=== PATIENT | female | born 1980 | race Caucasian/White ===

== ENCOUNTER 2019-08-06 10:10 | Outpatient (CLI) | payer OTHER, SELFPAY ==
--- NOTE | ~2019-08-06 | US_ITS ---
EXAMINATION: US pelvic complete w TV DATE: 08/06/2019 11:00 INDICATION: Menorrhagia Comparison:No prior studies for comparison. TECHNIQUE: Multiple transabdominal and endovaginal sonographic images of the pelvis performed. FINDINGS: The uterus measures 9.1 x 4.2 x 5 cm. The endometrial complex measures 9 mm. The right ovary measures 4.1 x 2.8 x 2.9 cm and the left ovary measures 2 x 1.3 x 1.8 cm. There is a right ovarian cyst measuring 2.2 x 1.8 x 1.5 cm. There is no free fluid in the pelvis. There are no abnormal masses seen on either side. IMPRESSION: 1. 2.2 cm right ovarian cyst. Reviewed, dictated and finalized at location A.
[2019-08-06 10:45] LABS: Hematocrit 44.3 % (37.0-47.0); Hemoglobin 14.5 g/dL (12.0-15.0); Mean Corpuscular HGB Conc 32.7 g/dl (32-36); Mean Corpuscular Hemoglobin 29.8 pg (26-34); Mean Platelet Volume 10.2 fl (7.4-10.4); Platelet Count Result 217 k/mm3 (150-375); Red Blood Count 4.87 M/mm3 (4.2-5.4); Red Cell Distribution Width 13.9 % (11.5-14.5); White Blood Count 8.6 K/mm3 (4.5-10.0)
[2019-08-06 11:36] LABS: Beta HCG Quantitative < 2.39 mIU/ML
[2019-08-06 11:37] LABS: Free T4 Free Thyroxine 0.71 ng/mL (0.78-2.19)
[2019-08-08 19:59] LABS: Prolactin 11.2 ng/mL (***)
== END 2019-08-06 10:11 | disposition home or self-care (01) ==
PROVIDERS: PCP Family Medicine Adolescent Medicine; Visit Provider Nurse Practitioner
DX: N92.0 Excessive and frequent menstruation with regular cycle (principal); N83.201 Unspecified ovarian cyst, right side
CPT/HCPCS: 36415; 76830; 76856; 84146; 84439; 84443; 84702; 85027

== ENCOUNTER 2019-08-30 08:50 | Outpatient (CLI) | payer OTHER, SELFPAY ==
[2019-08-30 09:08] LABS: Hematocrit 43.1 % (37.0-47.0); Hemoglobin 14.2 g/dL (12.0-15.0)
== END 2019-08-30 08:51 | disposition home or self-care (01) ==
LOC: ANHSURGERY 08:52
PROVIDERS: Anesthesiology; PCP Family Medicine Adolescent Medicine; Visit Provider Obstetrics & Gynecology Gynecology
DX: N92.0 Excessive and frequent menstruation with regular cycle (principal)
CPT/HCPCS: 36415; 85014; 85018

== ENCOUNTER 2019-09-02 00:36 | Outpatient (CLI) | payer OTHER, SELFPAY ==
[2019-09-03 14:20] LABS: SARS-CoV-2 RNA PCR Negative
== END 2019-09-02 00:37 | disposition home or self-care (01) ==
LOC: ANHCOVIDDT 00:36
PROVIDERS: PCP Family Medicine Adolescent Medicine; Visit Provider Obstetrics & Gynecology Gynecology
DX: Z01.812 Encounter for preprocedural laboratory examination (principal); Z11.59 Encounter for screening for other viral diseases
CPT/HCPCS: 87635; C9803; U0003

== ENCOUNTER 2019-09-05 02:22 | Day surgery (SDC) | payer OTHER, SELFPAY ==
[2019-08-23 11:36] VITALS: BMI 34.4
--- NOTE | 2019-09-05 07:40 | P.HP_ITS ---
History of Present Illness History of Present Illness Consent: Risks, benefits, and alternatives have been discussed and questions answered. Patient agrees to proceed with procedure. Chief complaint: Menorrhagia Narrative: Kaya Quintero is a 38 year old female with cycles every 2 weeks lasting 7 days. Patient states heavy with pad changed every 1-2 hours at times. Pelvic u/s normal and labs with low free T4 and normal TSH. Started on synthroid. Recommended to proceed with hysteroscopy with D&C to further evaluate. Risks of infection, bleeding, perforation, and pathology reviewed. Patient states understanding and agrees to proceed. [facility] Past Medical History Medical History (Updated 09/05/19 @ 07:44 by Fadia Alexander MD) Anxiety Asthma (normal spontaneous vaginal delivery) x 2 S/p left hip fracture Surgical History Surgical History (Updated 09/05/19 @ 07:43 by Fadia Alexander MD) S/P tubal ligation Social History Social History Smoking status: Never smoker Spiritual care concerns: No Meds Home Medications and Allergies Home Medications Medication Instructions Recorded Confirmed Type albuterol sulfate 2 puff INHALATION DIRECTED PRN 08/23/19 08/23/19 History escitalopram oxalate 20 mg PO DAILY 08/23/19 08/23/19 History levothyroxine 25 mcg PO DAILY 08/23/19 08/23/19 History Allergies Allergy/AdvReac Type Severity Reaction Status Date / Time No Known Allergies Allergy Verified 08/23/19 11:37 CATS Allergy Mild RESP. Uncoded 08/23/19 11:37 DIFF. EYES SWELL DOGS Allergy Mild EYES WATER Uncoded 08/23/19 11:37 Exam Const: General: healthy appearing and alert Orientation/consciousness: patient oriented x3 Resp: Effort & Inspection: normal respiratory effort Auscultation: clear to auscultation bilaterally Cardio: Rate: regular rate Rhythm: regular rhythm GI: GI Palp: Yes Soft to palpation, No Tenderness to palpation present (GI) and No Palpable mass present : External Female Exam: normal external appearance Speculum Exam - Vagina: normal appearance of the vagina and normal vaginal discharge Speculum Exam - Cervix: normal appearance of the cervix Bimanual exam- vagina & uterus: uterine size normal and consistency normal Bimanual Exam- Adnexa, other: normal adnexae and No adnexal tenderness Neuro: General: patient oriented x3 Assessment and Plan Assessment and plan (1) Irregular bleeding: Code(s): N92.6 - Irregular menstruation, unspecified Status: Acute Assessment and Plan: Plan to proceed with hysteroscopy and D&C
[2019-09-05] MEDS: LACTATED RINGERS 1,000 ML 30 ML IV CONT (09:25)
[2019-09-05] MEDS: ACETAMINOPHEN 500 MG TABLET 1000 MG PO (09:33)
--- NOTE | 2019-09-05 09:36 | P.PNAN_ITS ---
Anes - Initial Pre Proc Eval Procedure: Operation Date: 09/05/19 11:15 Proposed Procedures p Hysteroscopy, Dilation and Curettage - Fadia Alexander MD Date/Time: 09/05/19 09:36 Surgeon: Fadia Alexander MD Pre Op Diagnosis: Menorrhagia Patient Data Age: 38 Gender: F Height: 5 ft 7 in Weight: 102.8 kg Allergies Allergy/AdvReac Type Severity Reaction Status Date / Time No Known Allergies Allergy Verified 09/05/19 09:18 CATS Allergy Mild RESP. Uncoded 09/05/19 09:18 DIFF. EYES SWELL DOGS Allergy Mild EYES WATER Uncoded 09/05/19 09:18 Home Medications Medication Instructions Recorded Confirmed Type albuterol sulfate 2 puff INHALATION DIRECTED PRN 08/23/19 09/05/19 History escitalopram oxalate 20 mg PO DAILY 08/23/19 09/05/19 History levothyroxine 25 mcg PO DAILY 08/23/19 09/05/19 History Patient hx anesthesia problems: none Family hx anesthesia problems: none [facility] Past Medical History Medical History (Updated 09/05/19 @ 07:44 by Fadia Alexander MD) Anxiety Asthma (normal spontaneous vaginal delivery) x 2 S/p left hip fracture Surgical History Surgical History (Updated 09/05/19 @ 07:43 by Fadia Alexander MD) S/P tubal ligation Social History Social History Smoking status: Never smoker Spiritual care concerns: No Anes - Eval Final PreProcedure Day of Procedure 09/05/19 09:36 Patient weight: obese Heart: regular rate and rhythm Lungs: clear to auscultation Airway: Mallampati scale class II Neurological: alert and oriented Last oral intake: >/= 8 hours ASA classification: II Emergent: no Anesthetic plan: proceed Anesthesia type and monitoring: general (use inhalers prior to OR) GIVS and standard monitoring Informed Consent: The patient's anesthetic plan and its attendant risks and benefits were discussed with the patient/family/POA. Questions were solicited and answers provided to the satisfaction of the patient/family/POA.
[2019-09-05 09:43] VITALS: BP 94/56; PULSE 66; RESP 16; TEMP 36.4; O2SAT 97
--- NOTE | 2019-09-05 11:12 | PM.OP ---
Procedure Note - Brief Procedure Note - Brief Date of procedure: 09/05/19 Pre-op diagnosis: Menorrhagia Post-op diagnosis: same Procedure performed: D&C hysteroscopy; removal of polyp Anesthesia: MAC and local Surgeon: Fadia Alexander MD Estimated blood loss (mL): 5 Drains: No Packing: No Pathology: yes Complications: No immediate complications Condition: stable Disposition: PACU Findings: uterus 10 cm; 1 cm polyp on small stalk; grossly normal appearing endometrium
[2019-09-05 11:14] VITALS: BP 93/60; PULSE 64; RESP 16; O2SAT 99
[2019-09-05 11:45] VITALS: BP 90/63; PULSE 58
[2019-09-05 12:15] VITALS: BP 121/65; PULSE 61
--- NOTE | 2019-09-05 15:53 | OP_ITS ---
DATE OF PROCEDURE: 09/05/2019 PREOPERATIVE DIAGNOSIS: Menorrhagia. POSTOPERATIVE DIAGNOSIS: Menorrhagia. PROCEDURE: D and C, hysteroscopy with removal of polyp. ANESTHESIA: MAC and local. FINDINGS: The uterus sounds to 10 cm. There is a 1 cm polyp noted on a very thin stalk. ESTIMATED BLOOD LOSS: 5 cc. PATHOLOGY: Endometrial curettings and polyp. PROCEDURE IN DETAIL: The patient was taken to the operating room, placed under anesthesia, prepped and draped in usual sterile fashion. Gamerco speculum was placed in the vagina. Cervix was grasped on the anterior lip of the tenaculum and injected with 1% lidocaine. The uterus was sounded to 10 cm. The cervix was serially dilated with Hegar. The diagnostic hysteroscope was placed. The endometrium appears grossly normal. Manipulating the camera around a polyp is noted and is detached using the camera due to the thin attachment to the posterior wall. The remainder of the endometrium appears normal. The hysteroscope was removed. The polyp forceps were used to attempt to remove the polyp and this was not successful. The myoma graspers were not successful. The hysteroscope was replaced and the polyp was grasped with a small grasper through the hysteroscope and the hysteroscope and polyp graspers were removed intact. The polyp was noted at the end of the scope and the graspers and removed. The medium sharp curette was then used to sharply curette the remainder of the endometrium. Minimal material was obtained. All instruments were then removed. The patient was taken to Recovery in stable condition. Brando I MT: Destiny
== END 2019-09-05 12:32 | disposition home or self-care (01) ==
PROVIDERS: PCP Family Medicine Adolescent Medicine; Visit Provider Obstetrics & Gynecology Gynecology
PROC: 0U5B8ZZ Destruction of Endometrium, Via Natural or Artificial Opening Endoscopic (ICD-10-PCS; CPT 58563; principal; 2019-09-05 11:15)
DX: N92.0 Excessive and frequent menstruation with regular cycle (principal); N84.0 Polyp of corpus uteri; J45.909 Unspecified asthma, uncomplicated; F41.9 Anxiety disorder, unspecified; E66.9 Obesity, unspecified; Z68.35 Body mass index [BMI] 35.0-35.9, adult
CPT/HCPCS: 58558; 88305; A9270; J2250; J2704; J3010; J7030; J7120

== ENCOUNTER 2019-09-30 09:41 | Outpatient (CLI) | payer OTHER, SELFPAY ==
[2019-09-30 10:11] LABS: Hematocrit 41.3 % (37.0-47.0); Hemoglobin 13.6 g/dL (12.0-15.0); Mean Corpuscular HGB Conc 32.9 g/dl (32-36); Mean Corpuscular Hemoglobin 30.4 pg (26-34); Mean Corpuscular Volume 92.4 fl (80-100); Mean Platelet Volume 10.3 fl (7.4-10.4); Platelet Count Result 193 k/mm3 (150-375); Red Blood Count 4.47 M/mm3 (4.2-5.4); Red Cell Distribution Width 13.8 % (11.5-14.5)
== END 2019-09-30 09:42 | disposition home or self-care (01) ==
LOC: ANHLAB 09:46
PROVIDERS: PCP Family Medicine Adolescent Medicine; Visit Provider Obstetrics & Gynecology Gynecology
DX: N92.0 Excessive and frequent menstruation with regular cycle (principal)
CPT/HCPCS: 36415; 85027

== ENCOUNTER 2019-10-18 09:56 | Outpatient (CLI) | payer OTHER, SELFPAY ==
[2019-10-18 11:21] LABS: Thyroid Stimulating Hormone 0.957 uIU/mL (0.465-4.680)
[2019-10-18 11:49] LABS: Free T4 Free Thyroxine 0.69 ng/mL (0.78-2.19)
== END 2019-10-18 09:57 | disposition home or self-care (01) ==
LOC: ANHLAB 09:58
PROVIDERS: PCP Family Medicine Adolescent Medicine; Visit Provider Obstetrics & Gynecology Gynecology
DX: R94.6 Abnormal results of thyroid function studies (principal)
CPT/HCPCS: 36415; 84439; 84443

== ENCOUNTER 2019-11-11 00:15 | Outpatient (CLI) | payer OTHER, SELFPAY ==
[2019-11-11 18:02] LABS: SARS-CoV-2 RNA PCR Negative
== END 2019-11-11 00:16 | disposition home or self-care (01) ==
LOC: ANHCOVIDDT 00:15
PROVIDERS: PCP Family Medicine Adolescent Medicine; Visit Provider Obstetrics & Gynecology Gynecology
DX: Z01.812 Encounter for preprocedural laboratory examination (principal); Z20.828 Contact with and (suspected) exposure to other viral communicable diseases
CPT/HCPCS: 87635; C9803; U0003

== ENCOUNTER 2019-11-14 00:21 | Day surgery (SDC) | payer OTHER, SELFPAY ==
[2019-10-31 14:32] VITALS: BMI 34.4
--- NOTE | 2019-11-14 07:28 | P.HP_ITS ---
History of Present Illness History of Present Illness Consent: Risks, benefits, and alternatives have been discussed and questions answered. Patient agrees to proceed with procedure. Chief complaint: menorrhaghia Narrative: Kaya Quintero is a 38 year old female with menorrhagia. She had hysteroscopy with removal of large polyp. Cycle remained heavy and patient wants to proceed with endometrial ablation after review of all options. Risks of infection, bleeding, perforation, and failure discussed with patient. Post op expections reviewed. Agrees to proceed. [facility] Past Medical History Medical History (Updated 11/14/19 @ 07:31 by Fadia Alexander MD) Anxiety Asthma (normal spontaneous vaginal delivery) x 2 S/p left hip fracture Surgical History Surgical History (Updated 09/05/19 @ 07:43 by Fadia Alexander MD) S/P tubal ligation Social History Social History Smoking status: Never smoker Spiritual care concerns: No Meds Home Medications and Allergies Home Medications Medication Instructions Recorded Confirmed Type albuterol sulfate 2 puff INHALATION DIRECTED PRN 08/23/19 10/31/19 History escitalopram oxalate 20 mg PO DAILY 08/23/19 10/31/19 History levothyroxine 25 mcg PO DAILY 08/23/19 10/31/19 History epinephrine [EpiPen] 0.3 mg IM ONCE PRN 10/31/19 10/31/19 History montelukast [Singulair] 10 mg PO DAILY 10/31/19 10/31/19 History Allergies Allergy/AdvReac Type Severity Reaction Status Date / Time grape Allergy Anaphylaxis Verified 10/31/19 14:41 pomegranate Allergy Anaphylaxis Verified 10/31/19 14:41 CATS Allergy Mild RESP. Uncoded 10/31/19 14:32 DIFF. EYES SWELL DOGS Allergy Mild EYES WATER Uncoded 10/31/19 14:32 GREEN BEANS Allergy Anaphylaxis Uncoded 10/31/19 14:41 Exam Const: General: healthy appearing and alert Orientation/consciousness: patient oriented x3 Resp: Effort & Inspection: normal respiratory effort Auscultation: clear to auscultation bilaterally Cardio: Rate: regular rate Rhythm: regular rhythm GI: GI Palp: Yes Soft to palpation, No Tenderness to palpation present (GI) and No Palpable mass present : External Female Exam: normal external appearance Speculum Exam - V agina: normal appearance of the vagina and normal vaginal discharge Speculum Exam - Cervix: normal appearance of the cervix Bimanual exam- vagina & uterus: uterine size normal and consistency normal Bimanual Exam- Adnexa, other: normal adnexae and No adnexal tenderness Neuro: General: patient oriented x3 Assessment and Plan Assessment and plan (1) Menorrhagia: Code(s): N92.0 - Excessive and frequent menstruation with regular cycle Status: Acute Assessment and Plan: Plan to proceed with Iman endometrial ablation
--- NOTE | 2019-11-14 07:35 | WPDHPUPDATE1 ---
History and Physical Update Update Date/Time: 11/14/19 07:35 History and Physical has been reviewed, including an updated exam of the patient. There are NO changes in the patient's condition. Risks, benefits, and alternatives have been discussed and questions answered. Patient agrees to proceed with procedure.
[2019-11-14 07:58] VITALS: BMI 35.2
[2019-11-14] MEDS: ACETAMINOPHEN 500 MG TABLET 1000 MG PO (08:10)
[2019-11-14] MEDS: LACTATED RINGERS 1,000 ML 30 ML IV CONT (08:20)
[2019-11-14 08:24] VITALS: BP 116/59; PULSE 81; RESP 18; TEMP 36.2; O2SAT 99
--- NOTE | 2019-11-14 08:26 | WPDANESEPPF ---
Anes - Initial Pre Proc Eval Procedure: Operation Date: 11/14/19 09:30 Proposed Procedures p Hysteroscopy with Iman Ablation - Fadia Alexander MD Date/Time: 11/14/19 08:26 Surgeon: Fadia Alexander MD Pre Op Diagnosis: menorrhaghia Patient Data Age: 38 Gender: F Height: 5 ft 7 in Weight: 102 kg Last Vital Signs Temp 36.2 C L 11/14/19 08:24 Pulse 81 11/14/19 08:24 Resp 18 11/14/19 08:24 BP 116/59 L 11/14/19 08:24 Pulse Ox 99 11/14/19 08:24 Allergies Allergy/AdvReac Type Severity Reaction Status Date / Time grape Allergy Anaphylaxis Verified 11/14/19 07:51 pomegranate Allergy Anaphylaxis Verified 11/14/19 07:51 CATS Allergy Mild RESP. Uncoded 11/14/19 07:51 DIFF. EYES SWELL DOGS Allergy Mild EYES WATER Uncoded 11/14/19 07:51 GREEN BEANS Allergy Anaphylaxis Uncoded 11/14/19 07:51 Home Medications Medication Instructions Recorded Confirmed Type albuterol sulfate 2 puff INHALATION DIRECTED PRN 08/23/19 11/14/19 History escitalopram oxalate 20 mg PO DAILY 08/23/19 11/14/19 History levothyroxine 25 mcg PO DAILY 08/23/19 11/14/19 History epinephrine [EpiPen] 0.3 mg IM ONCE PRN 10/31/19 11/14/19 History montelukast [Singulair] 10 mg PO DAILY 10/31/19 11/14/19 History mometasone-formoterol [Dulera] 2 puff INHALATION BID 11/14/19 11/14/19 History Patient hx anesthesia problems: none Family hx anesthesia problems: none [facility] Past Medical History Medical History Anxiety Asthma (normal spontaneous vaginal delivery) x 2 S/p left hip fracture Surgical History Surgical History S/P tubal ligation Social History Social History Smoking status: Never smoker Spiritual care concerns: No Anes - Eval Final PreProcedure Day of Procedure 11/14/19 08:26 Patient weight: obese Heart: regular rate and rhythm Lungs: clear to auscultation Airway: Mallampati scale class II Neurological: alert and oriented Last oral intake: >/= 8 hours Emergent: no Anesthetic plan: proceed Anesthesia type and monitoring: general GIVS and standard monitoring Informed Consent: The patient's anesthetic plan and its attendant risks and benefits were discussed with the patient/family/POA. Questions were solicited and answers provided to the satisfaction of the patient/family/POA.
[2019-11-14] MEDS: KETOROLAC 30 MG/ML VIAL (*BKC) IV PUSH (09:38)
--- NOTE | 2019-11-14 09:45 | PM.PROC ---
Procedure Note - Detailed Date of procedure: 11/14/19 Pre-op diagnosis: menorrhaghia Post-op diagnosis: same Procedure performed: iman endometrial ablation Description of procedure: The patient was taken to the operating room and placed in the dorsal lithotomy position under MAC anesthesia. She was prepped and draped in usual sterile fashion. The bivalve speculum was placed in the vagina and the cervix is grasped on the anterior lip with a tenaculum. The uterus is sounded to 11cm the cervix sounded to 5cm. The cervix is serially dilated with Hegar 6. The diagnostic hysteroscope was placed with the stated findings. The hysteroscope was removed and the Iman device is opened and placed. The cavity assessment passed on the 1st attempt. The length was set at 6.5cm. Treatment cycle lasted the entire 2 minutes. The device is removed and the hysteroscope replaced. Good ablation effect is noted. All instruments are removed. Patient is awakened from anesthesia and taken to recovery room in stable condition. Anesthesia: MAC and local Surgeon: Fadia Alexander MD Estimated blood loss (mL): 5 Drains: No Packing: No Pathology: none sent Complications: No immediate complications Condition: stable Disposition: PACU Findings: cervix sounds to 5 cm; uterus sounds to 11 cm; grossly normal endometrium
[2019-11-14 09:46] VITALS: BP 110/73; PULSE 70; RESP 14; O2SAT 96
[2019-11-14 10:15] VITALS: BP 109/72; PULSE 60; RESP 16; O2SAT 97
[2019-11-14 10:45] VITALS: BP 117/75; PULSE 59; RESP 16
== END 2019-11-14 11:05 | disposition home or self-care (01) ==
PROVIDERS: PCP Family Medicine Adolescent Medicine; Visit Provider Obstetrics & Gynecology Gynecology
PROC: 0U5B8ZZ Destruction of Endometrium, Via Natural or Artificial Opening Endoscopic (ICD-10-PCS; CPT 58563; principal; 2019-11-14 09:30)
DX: N92.0 Excessive and frequent menstruation with regular cycle (principal); J45.909 Unspecified asthma, uncomplicated; F41.9 Anxiety disorder, unspecified; E66.9 Obesity, unspecified; Z68.35 Body mass index [BMI] 35.0-35.9, adult
CPT/HCPCS: 58563; A9270; J1100; J1885; J2250; J2405; J2704; J3010; J7030; J7120

== ENCOUNTER 2019-12-13 09:12 | Outpatient (CLI) | payer OTHER, SELFPAY ==
[2019-12-13 10:24] LABS: Thyroid Stimulating Hormone 0.357 uIU/mL (0.465-4.680)
[2019-12-13 10:26] LABS: Free T4 Free Thyroxine 0.84 ng/mL (0.78-2.19)
== END 2019-12-13 09:13 | disposition home or self-care (01) ==
PROVIDERS: PCP Family Medicine Adolescent Medicine; Visit Provider Obstetrics & Gynecology Gynecology
DX: E05.90 Thyrotoxicosis, unspecified without thyrotoxic crisis or storm (principal)
CPT/HCPCS: 36415; 84439; 84443

== ENCOUNTER 2020-02-06 11:53 | Outpatient (CLI) | payer OTHER, SELFPAY ==
[2020-02-06 12:56] LABS: Thyroid Stimulating Hormone 0.748 uIU/mL (0.465-4.680)
[2020-02-06 13:29] LABS: Free T4 Free Thyroxine 0.79 ng/mL (0.78-2.19)
== END 2020-02-06 11:54 | disposition home or self-care (01) ==
LOC: ANHLAB 11:54
PROVIDERS: PCP Family Medicine Adolescent Medicine; Visit Provider Obstetrics & Gynecology Gynecology
DX: E03.9 Hypothyroidism, unspecified (principal)
CPT/HCPCS: 36415; 84439; 84443

== ENCOUNTER 2020-02-20 12:16 | Emergency (ER) | payer OTHER, SELFPAY ==
[2020-02-20] VITALS (9 sets, daily range): BP systolic 93–125; BP diastolic 52–73; PULSE 82–88; RESP 16–18; TEMP 36.8; O2SAT 97–100
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
[2020-02-20] MEDS: FAMOTIDINE 20 MG/2 ML VIAL IV PUSH (12:50)
[2020-02-20] MEDS: methylPREDNISolone SOD SUCC 125 MG VIAL IV PUSH (12:50)
[2020-02-20] MEDS: diphenhydrAMINE HCl INJ 50 MG/ML VIAL IV PUSH (12:50)
--- NOTE | 2020-02-20 14:00 | PC.NURSE ---
no further rash observed. pt report no longer itching. no resp distress. vs stable
== END 2020-02-20 14:17 | disposition home or self-care (01) ==
PROVIDERS: Emergency Provider Emergency Medicine; PCP Family Medicine Adolescent Medicine
DX: L50.0 Allergic urticaria (principal); J45.909 Unspecified asthma, uncomplicated; F41.9 Anxiety disorder, unspecified
CPT/HCPCS: 96374; 96375; 99284; J1200; J2930

== ENCOUNTER 2020-08-30 09:27 | Outpatient (CLI) | payer OTHER, SELFPAY ==
[2020-08-30 10:51] LABS: Free T4 Free Thyroxine 0.78 ng/mL (0.78-2.19); Vitamin D 25 Hydroxy 40.6 ng/mL
[2020-08-30 10:55] LABS: Thyroid Stimulating Hormone 0.771 uIU/mL (0.465-4.680)
== END 2020-08-30 09:28 | disposition home or self-care (01) ==
LOC: ANHLAB 09:28
PROVIDERS: PCP Family Medicine Adolescent Medicine; Visit Provider Nurse Practitioner
DX: E55.9 Vitamin D deficiency, unspecified (principal); E03.9 Hypothyroidism, unspecified
CPT/HCPCS: 36415; 82306; 84439; 84443

== ENCOUNTER 2020-12-04 08:48 | Outpatient (CLI) | payer OTHER, SELFPAY ==
[2020-12-04 10:07] LABS: Thyroid Stimulating Hormone 0.756 uIU/mL (0.465-4.680)
[2020-12-04 10:13] LABS: Vitamin D 25 Hydroxy 39.6 ng/mL
== END 2020-12-04 08:49 | disposition home or self-care (01) ==
PROVIDERS: PCP Family Medicine Adolescent Medicine; Visit Provider Obstetrics & Gynecology Gynecology
DX: E03.9 Hypothyroidism, unspecified (principal); E55.9 Vitamin D deficiency, unspecified
CPT/HCPCS: 36415; 82306; 84439; 84443

== ENCOUNTER 2021-06-05 10:56 | Emergency (ER) | payer OTHER, SELFPAY ==
[2021-06-05 11:05] VITALS: BP 127/90; PULSE 74; RESP 16; TEMP 36.4; O2SAT 100
--- NOTE | 2021-06-05 11:26 | ED.SKABFB ---
HPI - Skin/Abscess/Foreign Bdy General Chief complaint: Skin/Abscess/Foreign Body Stated complaint: RASH Time Seen by Provider: 06/05/21 11:26 Source: patient Mode of arrival: ambulatory Limitations: no limitations History of Present Illness HPI narrative: 40-year-old female presents with itchy rash to bilateral arms for 2 weeks. States that rash started after working outside in [employer]. Has used any [id number] steroid cream to treat itching. Has not taken any Benadryl or other antihistamine to treat itching. Patient has used permethrin 5% cream twice due to concern for scabies. She has had no known contact with scabies and no other family members in her house have similar rash. She states that she had a scabies several years ago and rash looks similar. All systems reviewed and negative except as noted above Related Data Home Medications Medication Instructions Recorded Confirmed albuterol sulfate 2 puff INHALATION DIRECTED PRN 08/23/19 03/14/21 escitalopram oxalate 20 mg PO DAILY 08/23/19 03/14/21 epinephrine [EpiPen] 0.3 mg IM ONCE PRN 10/31/19 03/14/21 acyclovir 400 mg tablet 400 mg PO TID PRN 03/13/21 03/14/21 cholecalciferol (vitamin D3) 10 20 mcg PO DAILY cap 03/14/21 03/14/21 mcg (400 unit) capsule levothyroxine 75 mcg capsule See Rx Instructions PO DAILY 03/14/21 03/14/21 Allergies Allergy/AdvReac Type Severity Reaction Status Date / Time grape Allergy Anaphylaxis Verified 03/14/21 09:00 pomegranate Allergy Anaphylaxis Verified 03/14/21 09:00 CATS Allergy Mild RESP. Uncoded 03/14/21 09:00 DIFF. EYES SWELL DOGS Allergy Mild EYES WATER Uncoded 03/14/21 09:00 GREEN BEANS Allergy Anaphylaxis Uncoded 03/14/21 09:00 Review of Systems Review of Systems: CONSTITUTIONAL: Denies fever, chills, or sweats. EYES: Denies visual changes, redness, or discharge. ENT: Denies rhinorrhea, congestion, sore throat, or otalgia. CARDIOVASCULAR: Denies chest pain, palpitations, or edema. RESPIRATORY: Denies cough or dyspnea. GASTROINTESTINAL: Denies abdominal pain, nausea, vomiting, or diarrhea. GENITOURINARY: Denies dysuria or hematuria. SKIN: Reports rash and itching. MUSCULOSKELETAL: Denies back pain, joint pain, or myalgia. NEUROLOGIC: Denies headache, numbness, or weakness. PSYCHIATRIC: Denies anxiety or depression. All other systems reviewed are negative, except as documented in HPI. [facility] Past Medical History Medical History Anxiety Asthma Generalized anxiety disorder Hypothyroid (normal spontaneous vaginal delivery) x 2 S/p left hip fracture Surgical History Surgical History H/O lumpectomy Rt breast lumpectomy History of endometrial ablation S/P tubal ligation Family History Family History Grandparent Breast cancer Acute myocardial infarction Cerebrovascular accident Diabetes mellitus Grandparent Family history of malignant neoplasm of breast Breast cancer Father Asthma Mother Heart disease Stents placed Diabetes mellitus Hypertension Other Depression Social History Social History Smoking status: Never smoker Alcohol intake: current Alcohol use details: once weekly Substance use: never Substance use type: does not use Gender identity (if verbalized by the patient): Female Sexual Orientation (if Verbalized by the Patient): Straight or Heterosexual Spiritual care concerns: No Agree to blood products: Yes Comments At time of signature, agree with nursing past medical, surgical, social and family history. There is no relevant family history pertinent to the presenting complaint. Exam Narrative: GENERAL: This is a well-nourished, well-developed patient, in no apparent distress. HEAD: normocephalic, atrauma
== END 2021-06-05 11:40 | disposition home or self-care (01) ==
PROVIDERS: Emergency Provider Nurse Practitioner Family; PCP Family Medicine Adolescent Medicine
DX: L25.5 Unspecified contact dermatitis due to plants, except food (principal); J45.909 Unspecified asthma, uncomplicated; E03.9 Hypothyroidism, unspecified; F41.1 Generalized anxiety disorder
CPT/HCPCS: 99213; G0463

== ENCOUNTER 2021-06-11 12:05 | Outpatient (CLI) | payer OTHER, SELFPAY ==
[2021-06-11 12:59] LABS: Vitamin D 25 Hydroxy 25.9 ng/mL
== END 2021-06-11 12:06 | disposition home or self-care (01) ==
LOC: ANHLAB 12:07
PROVIDERS: PCP Family Medicine Adolescent Medicine; Visit Provider Obstetrics & Gynecology Gynecology
DX: E55.9 Vitamin D deficiency, unspecified (principal)
CPT/HCPCS: 36415; 82306

== ENCOUNTER 2021-06-14 17:12 | Emergency (ER) | payer OTHER, SELFPAY ==
--- NOTE | ~2021-06-14 | XR_ITS ---
EXAMINATION: XR ankle RT min 3V DATE: 06/14/2021 17:29 INDICATION: Right ankle inversion injury with lateral malleolar swelling and pain TECHNIQUE: Anteroposterior, oblique, mortise, and lateral views of the right ankle were obtained. COMPARISON: None. FINDINGS: Alignment is normal. No fracture. Joint spaces are normal. Moderate-sized Achilles and plantar calcan eal spurs. Soft tissue swelling about the lateral malleolus. No evident ankle joint effusion. IMPRESSION: 1. No acute osseous abnormality. Reviewed, dictated and finalized at location A.
[2021-06-14 17:17] VITALS: BP 125/80; PULSE 93; RESP 16; TEMP 36.9; O2SAT 96
--- NOTE | 2021-06-14 19:05 | ED.LOWEXIN ---
HPI - Extremity Injury (Lower) General Chief Complaint: Extremity Injury, Lower Stated Complaint: Fall Injury/Right Ankle Time Seen by Provider: 06/14/21 19:06 Source: patient, RN notes reviewed and old records reviewed Mode of arrival: ambulatory Limitations: no limitations History of Present Illness HPI Narrative: 40 hemanth old female who present to express care with complaints of injury to her right ankle after walking out her front door dodging her dog this afternoon and stepped down rolling her foot with pain and swelling now present to her right lateral ankle, Patient is able to apply some weight to her right foot but with increase pain, circulation and sensation is intact to right foot. Has taken some Ibuprofen for her discomfort and has applied ice. MD complaint: ankle injury (right ankle) and fall Onset (ago): hour(s) (this afternoon) Injury: Right: ankle (lateral) Type of Injury: other (rolled) Place: home Exacerbating factors: weight bearing Context: fall Treatments prior to arrival: cold therapy and NSAIDS Related Data Home Medications Medication Instructions Recorded Confirmed albuterol sulfate 2 puff INHALATION DIRECTED PRN 08/23/19 06/14/21 escitalopram oxalate 20 mg PO DAILY 08/23/19 06/14/21 epinephrine [EpiPen] 0.3 mg IM ONCE PRN 10/31/19 06/14/21 levothyroxine 75 mcg capsule See Rx Instructions PO DAILY 03/14/21 06/14/21 ergocalciferol (vitamin D2) 1,250 mcg PO WEEKLY 06/14/21 06/14/21 triamcinolone acetonide 1 applic TOPICAL TID 06/14/21 06/14/21 Allergies Allergy/AdvReac Type Severity Reaction Status Date / Time grape Allergy Anaphylaxis Verified 06/14/21 18:09 pomegranate Allergy Anaphylaxis Verified 06/14/21 18:09 CATS Allergy Mild RESP. Uncoded 06/14/21 18:09 DIFF. EYES SWELL DOGS Allergy Mild EYES WATER Uncoded 06/14/21 18:09 GREEN BEANS Allergy Anaphylaxis Uncoded 06/14/21 18:09 Review of Systems Review of Systems: CONSTITUTIONAL: Denies fever, chills, or sweats. EYES: Denies visual changes, redness, or discharge. ENT: Denies rhinorrhea, congestion, sore throat, or otalgia. CARDIOVASCULAR: Denies chest pain, palpitations, or edema. RESPIRATORY: Denies cough or dyspnea. GASTROINTESTINAL: Denies abdominal pain, nausea, vomiting, or diarrhea. GENITOURINARY: Denies dysuria or hematuria. SKIN: Denies rash or itching. MUSCULOSKELETAL: Denies back pain,right lateral ankle joint pain, or myalgia. NEUROLOGIC: Denies headache, numbness, or weakness. PSYCHIATRIC: Positive for history of anxiety or depression. All systems reviewed & are unremarkable except as noted in HPI and below PMFSH Past Medical History Medical History Anxiety Asthma Generalized anxiety disorder Hypothyroid (normal spontaneous vaginal delivery) x 2 S/p left hip fracture Surgical History Surgical History H/O lumpectomy Rt breast lumpectomy History of endometrial ablation S/P tubal ligation Family History Family History Grandparent Breast cancer Acute myocardial infarction Cerebrovascular accident Diabetes mellitus Grandparent Family history of malignant neoplasm of breast Breast cancer Father Asthma Mother Heart disease Stents placed Diabetes mellitus Hypertension Other Depression Social History Social History Smoking status: Never smoker Alcohol intake: current Alcohol use details: once weekly Substance use: never Substance use type: does not use Gender identity (if verbalized by the patient): Female Sexual Orientation (if Verbalized by the Patient): Straight or Heterosexual Spiritual care concerns: No Agree to blood products: Yes Comments At time of signature, agree with nursing past medical, surgical, social and family history. The
== END 2021-06-14 19:15 | disposition home or self-care (01) ==
PROVIDERS: Emergency Provider Registered Nurse; PCP Family Medicine Adolescent Medicine
DX: S93.401A Sprain of unspecified ligament of right ankle, initial encounter (principal); S96.911A Strain of unspecified muscle and tendon at ankle and foot level, right foot, initial encounter; E03.9 Hypothyroidism, unspecified; X50.1XXA Overexertion from prolonged static or awkward postures, initial encounter; Y92.008 Other place in unspecified non-institutional (private) residence as the place of occurrence of the external cause
CPT/HCPCS: 73610; 99213; G0463

== ENCOUNTER 2021-08-01 11:36 | Outpatient (CLI) | payer OTHER, SELFPAY ==
--- NOTE | ~2021-08-01 | XR_ITS ---
XR ankle RT min 3V DATE: 08/01/2021 11:47 INDICATION: Right ankle and foot pain TECHNIQUE: 4 views COMPARISON: 06/14/2021 right ankle FINDINGS: Moderate plantar and posterior calcaneal enthesopathy. No fracture or dislocation of the ankle or disruption of the ankle mortise or periosteal reaction or bone destruction. IMPRESSION: Plantar and posterior calcaneal enthesopathy Reviewed, dictated and finalized at location A.
== END 2021-08-01 11:37 | disposition home or self-care (01) ==
LOC: ANHIMG 11:38
PROVIDERS: PCP Family Medicine Adolescent Medicine; Visit Provider Physician Assistant
DX: M25.571 Pain in right ankle and joints of right foot (principal); M77.31 Calcaneal spur, right foot
CPT/HCPCS: 73610

== ENCOUNTER 2021-08-20 10:04 | Outpatient (CLI) | payer OTHER, SELFPAY ==
[2021-08-20 10:27] LABS: Basophils Absolute Auto 0.1 K/mm3 (0.0-0.1); Basophils Percent Auto 0.6 % (0.2-1.2); Eosinophils Absolute Auto 0.1 K/mm3 (0-0.3); Eosinophils Percent Auto 1.4 % (0-4.4); Hematocrit 43.4 % (37.0-47.0); Hemoglobin 14.1 g/dL (12.0-15.0); Immature Granulocyte Absolute 0.01 K/mm3 (0.00-0.031); Immature Granulocyte Percent A 0.1 % (0-0.5); Lymphocytes Absolute Auto 1.77 K/mm3 (0.9-3.2); Lymphocytes Percent Auto 22.1 % (18.3-44.2); Mean Corpuscular HGB Conc 32.5 g/dl (32-36); Mean Corpuscular Hemoglobin 30.4 pg (26-34); Mean Corpuscular Volume 93.5 fl (80-100); Mean Platelet Volume 9.9 fl (7.4-10.4); Monocytes Absolute Auto 0.6 K/mm3 (0.1-0.6); Monocytes Percent Auto 7.1 % (2.6-8.5); Neutrophils Absolute Auto 5.5 K/mm3 (1.3-6.7); Neutrophils Percent Auto 68.7 % (45.5-73.1); Platelet Count Result 220 k/mm3 (150-375); Red Blood Count 4.64 M/mm3 (4.2-5.4); Red Cell Distribution Width 13.9 % (11.5-14.5)
== END 2021-08-20 10:05 | disposition home or self-care (01) ==
PROVIDERS: PCP Family Medicine Adolescent Medicine; Visit Provider Obstetrics & Gynecology
DX: R87.629 Unspecified abnormal cytological findings in specimens from vagina (principal); Z01.818 Encounter for other preprocedural examination
CPT/HCPCS: 36415; 85025; 86850; 86900; 86901

== ENCOUNTER 2021-08-23 01:27 | Day surgery (SDC) | payer OTHER, SELFPAY ==
[2021-08-16 13:46] VITALS: BMI 37.6
--- NOTE | 2021-08-16 13:52 | PC.NURSE ---
Report to the Outpatient Waiting Room, entrance under the green pavilion located off [facility], at time _0930_ on date _[id number]_. OR Time: _1130_. - You and your visitor will be asked a series of questions to screen for COVID 19 for your protection. - Only one visitor is allowed at this time. - The patient visitor is requested to leave or wait in car when not with patient. - A mask is required within the hospital. Patients may have clear liquids (water, carbonated beverages, clear teas, apple juice) until 3 hours prior to surgery with a maximum of 20 ounces. - No food from midnight until time of surgery Take the following medications with a SIP of water the morning of surgery: __Escitalopram, Levothyroxine and Dulera Medications to discontinue per physician ____None Date to take last dose Please no make-up, nail portuguese, hairspray, perfume, deodorant, or body powder the day of surgery. No jewelry (including any body piercings) or valuables the day of surgery, leave them at home. Please take a shower or bath the night before, or the morning of, surgery with an antibacterial soap. Wear comfortable, loose fitting clothing. - Jewelry must be removed prior to entering the operating room. Rings and piercings that are not removed may be cut off. - The hospital will not accept responsibility for valuables. - Please leave all valuables, including medications, at home the day of surgery. If you are going home after surgery, a licensed national dedicated truck driver must drive you home. - NO public transportation without another adult. - We recommend that an adult stay with you for 24 hours following discharge. - We also recommend that you do not drive, make important decision, drink alcoholic beverages, or take any drugs that were not prescribed by your health care provider for at least 24 hours after your discharge time. Follow any additional instructions given to you from your surgeon. If you or anyone in your household have experienced Covid symptoms in the past week, please notify your surgeon or the nurse liaison at the phone number below for possible testing. Telephone instructions given to __Patient___and asked if any additional questions and then verbalized understanding. Patient advised to call surgeon office or pre surgery nurse liaison [phone] if any additional questions.
--- NOTE | 2021-08-21 07:26 | PM.IMHP ---
H&P: HPI History of Present Illness Date/Time: 08/21/21 07:26 Chief Complaint: Pelvic pain/stress urinary incontinence Narrative: This is a 40-year-old female admitted for robotic hysterectomy bilateral salpingectomy with sling procedure. She has stress incontinence as well as a prolapsed uterus. She has pain, dyspareunia, and chronic discomfort. Risks and benefits of this procedure reviewed including exclusive of , aspiration pneumonia, bleeding, transfusion, perforation injury to bowel, bladder, ureters, or other internal organs with need for open laparotomy. She received the [employer] handout entitled hysterectomy as well as the de Stephen handout. She was given a handout concerning the TVT procedure and the risks of mesh etc. reviewed in great details. She had all questions answered. She asked to proceed PMFSH Past Medical History Medical History Anxiety Asthma Generalized anxiety disorder Hypothyroid Irregular bleeding Menorrhagia (normal spontaneous vaginal delivery) x 2 S/p left hip fracture Surgical History Surgical History H/O lumpectomy Rt breast lumpectomy History of endometrial ablation S/P tubal ligation Family History Family History Grandparent Breast cancer Acute myocardial infarction Cerebrovascular accident Diabetes mellitus Grandparent Family history of malignant neoplasm of breast Breast cancer Father Asthma Mother Heart disease Stents placed Diabetes mellitus Hypertension Other Depression Social History Social History Smoking status: Never smoker Second hand tobacco smoke exposure: No Alcohol intake: current Drinks per week: 1 Alcohol use details: once weekly Substance use: never Substance use type: does not use Gender identity (if verbalized by the patient): Female Sexual Orientation (if Verbalized by the Patient): Straight or Heterosexual Spiritual care concerns: No Agree to blood products: Yes Meds Home Medications and Allergies Home Medications Medication Instructions Recorded Confirmed Type epinephrine 0.3 mg/0.3 mL 0.3 mg IM ONCE PRN Allergic 10/31/19 08/16/21 History injection, auto-injector (EpiPen) Reaction levothyroxine 75 mcg capsule 75 mcg PO QAM 03/14/21 08/16/21 History montelukast 10 mg tablet 10 mg PO DAILY #90 tabs 04/15/21 08/16/21 Rx (Singulair) mometasone-formoterol HFA 200 2 puff inhalation BID #8.8 grams 04/18/21 08/16/21 Rx mcg-5 mcg/actuation aerosol inhaler (Dulera) ergocalciferol (vitamin D2) 1,250 1,250 mcg PO WEEKLY 06/14/21 08/16/21 History mcg (50,000 unit) capsule albuterol sulfate 90 mcg/actuation 2 puff inhalation DIRECTED PRN 06/24/21 08/16/21 Rx aerosol inhaler Shortness Of Breath #8.5 grams escitalopram oxalate 20 mg tablet 20 mg PO QAM 08/16/21 08/16/21 History Allergies Allergy/AdvReac Type Severity Reaction Status Date / Time cat dander Allergy Severe Difficulty Verified 08/16/21 14:07 Breathing dog dander Allergy Mild Other Verified 08/16/21 14:07 grape Allergy Anaphylaxis Verified 08/16/21 13:43 pomegranate Allergy Anaphylaxis Verified 08/16/21 13:43 GREEN BEANS Allergy Anaphylaxis Uncoded 08/16/21 13:43 Exam : External Female Exam: normal external appearance Speculum Exam - Vagina: normal appearance of the vagina Speculum Exam - Cervix: normal appearance of the cervix (Second-degree prolapse is present) Bimanual exam- vagina & uterus: enlarged Bimanual Exam- Adnexa, other: normal adnexae Assessment and Plan Assessment and plan (1) Uterine prolapse: Code(s): N81.4 - Uterovaginal prolapse, unspecified Status: Acute (2) Pelvic pain: Code(s): R10.2 - Pelvic and perineal pain Status: Acut
[2021-08-23] VITALS (18 sets, daily range): BP systolic 102–130; BP diastolic 54–84; PULSE 64–93; RESP 10–16; TEMP 36.6–36.8; O2SAT 93–100
--- NOTE | 2021-08-23 06:30 | WPDHPUPDATE1 ---
History and Physical Update Update Date/Time: 08/23/21 06:30 History and Physical has been reviewed, including an updated exam of the patient. There are NO changes in the patient's condition. Risks, benefits, and alternatives have been discussed and questions answered. Patient agrees to proceed with procedure.
[2021-08-23] MEDS: ACETAMINOPHEN 500 MG TABLET 1000 MG PO (07:41)
[2021-08-23] MEDS: LACTATED RINGERS 1,000 ML 30 ML IV CONT ×2 (08:08→11:00)
[2021-08-23] MEDS: KETOROLAC 15 MG/ML VIAL (*BKC) IV PUSH (08:12)
--- NOTE | 2021-08-23 08:42 | WPDANESEPPF ---
Anes - Initial Pre Proc Eval Procedure: Operation Date: 08/23/21 09:30 Proposed Procedures p Robotic Assisted Total Vaginal Hysterectomy, Bilateral Salpingectomy - Joni Miner MD s Tension Free Vaginal Taping - Joni Miner MD Date/Time: 08/23/21 08:42 Surgeon: Joni Miner MD Pre Op Diagnosis: abn pap, uterine prolapse, pain, ADELAIDE Patient Data Age: 40 Gender: F Height: 1.7 m Weight: 109.9 kg Last Vital Signs Temp 98.3 F 08/23/21 08:15 Pulse 66 08/23/21 08:15 Resp 16 08/23/21 08:15 BP 119/70 08/23/21 08:15 Pulse Ox 97 08/23/21 08:15 O2 Del Method Room Air 08/23/21 08:15 Allergies Allergy/AdvReac Type Severity Reaction Status Date / Time cat dander Allergy Severe Difficulty Verified 08/23/21 07:36 Breathing dog dander Allergy Mild Other Verified 08/23/21 07:36 grape Allergy Anaphylaxis Verified 08/23/21 07:36 pomegranate Allergy Anaphylaxis Verified 08/23/21 07:36 Home Medications Medication Instructions Recorded Confirmed Type epinephrine 0.3 mg/0.3 mL 0.3 mg IM ONCE PRN Allergic 10/31/19 08/16/21 History injection, auto-injector (EpiPen) Reaction levothyroxine 75 mcg capsule 75 mcg PO QAM 03/14/21 08/23/21 History montelukast 10 mg tablet 10 mg PO DAILY #90 tabs 04/15/21 08/23/21 Rx (Singulair) mometasone-formoterol HFA 200 2 puff inhalation BID #8.8 grams 04/18/21 08/23/21 Rx mcg-5 mcg/actuation aerosol inhaler (Dulera) ergocalciferol (vitamin D2) 1,250 1,250 mcg PO WEEKLY 06/14/21 08/23/21 History mcg (50,000 unit) capsule albuterol sulfate 90 mcg/actuation 2 puff inhalation DIRECTED PRN 06/24/21 08/16/21 Rx aerosol inhaler Shortness Of Breath #8.5 grams escitalopram oxalate 20 mg tablet 20 mg PO QAM 08/16/21 08/23/21 History hydrocodone 5 mg-acetaminophen 325 1 tablet PO Q4H PRN pain #30 tabs 08/23/21 Rx mg tablet Patient hx anesthesia problems: none Family hx anesthesia problems: none Results Review: All pre-operative results and documents have been reviewed as part of the pre-operative evaluation. [facility] Past Medical History Medical History Anxiety Asthma Generalized anxiety disorder Hypothyroid Irregular bleeding Menorrhagia (normal spontaneous vaginal delivery) x 2 S/p left hip fracture Surgical History Surgical History H/O lumpectomy Rt breast lumpectomy History of endometrial ablation S/P tubal ligation Family History Family History Grandparent Breast cancer Acute myocardial infarction Cerebrovascular accident Diabetes mellitus Grandparent Family history of malignant neoplasm of breast Breast cancer Father Asthma Mother Heart disease Stents placed Diabetes mellitus Hypertension Other Depression Social History Social History Smoking status: Never smoker Second hand tobacco smoke exposure: No Alcohol intake: current Drinks per week: 1 Alcohol use details: once weekly Substance use: never Substance use type: does not use Living arrangements: with family Gender identity (if verbalized by the patient): Female Sexual Orientation (if Verbalized by the Patient): Straight or Heterosexual Spiritual care concerns: No Agree to blood products: Yes Anes - Eval Final PreProcedure Day of Procedure 08/23/21 08:42 Patient weight: obese Heart: regular rate and rhythm Lungs: clear to auscultation Airway: Mallampati scale class II Neurological: alert and oriented Last oral intake: >/= 8 hours ASA classification: III Emergent: no Anesthetic plan: proceed Anesthesia type and monitoring: general ETT and standard monitoring Results Review: All pre-operative results and documents have been reviewed as part of the pr
[2021-08-23] MEDS: ceFAZolin 2 GM/D5W 50 ML 2 GM/50 ML BAG IVPB (09:11)
--- NOTE | 2021-08-23 10:53 | W.PM.PROC2 ---
Procedure Note - Detailed Date of Procedure 08/23/21 Pre-op Diagnosis abn pap, uterine prolapse, pain, ADELAIDE Post-op Diagnosis Same Procedure Performed Robotic total vaginal hysterectomy/bilateral salpingectomy/tension-free vaginal tape/cysto Surgeon Joni Miner MD Anesthesia General Indications This 40-year-old female with uterine prolapse pain and abnormal cells under cervix as well as stress urinary incontinence Findings Prolapsed uterus/normal-appearing ovaries and tubes/tubes status post tubal ligation Description of Procedure The patient was prepped draped in the normal sterile fashion placed in the dorsal lithotomy position. Under excellent general trach anesthesia weighted speculum placed in posterior fornix vagina. Anterior lip of the cervix grasped with a single-tooth tenaculum. Uterus sounded to 10cm. Serial dilatation with fragmented dilators performed followed by passage of 10. LICNOLN and the 3. Cold cup. Next the 16 Norwegian catheter was placed and bladder drained of clear urine. The single-tooth was removed. The weighted speculum was removed. Gloves were changed A supraumbilical incision made the Veress needle passed in the abdomen filled with CO2 gas [id number]. The 8mm trocar advanced in the abdomen. Downside visualized no injury seen. Patient placed in Trendelenburg and left and right lateral quadrant incisions made. The 8mm trocars were advanced under direct visualization assuring no injury. A right upper quadrant incision made the 8mm trocar advanced under direct visualization assuring no injury. The robot was docked. Attention turned to the console. The left round ligament was grasped, burned, cut. Anteriorly a bladder flap was formed by sharply dissecting the peritoneum pushing the bladder caudally away from the cervix and uterus to the opposite round ligament which was clamped, burned, cut. This was fairly vascular and required some cauterization. Next the left fallopian tube was removed in its entirety by sharply dissecting it away from the ovarian complex and leaving it attached to the uterine origin. In like fashion the right fallopian tube was sharply dissected away from the ovary and left attached to the uterus. The left cardinal and broad ligaments were serially skeletonized. They were clamped, burned, cut and brought down the lateral edge of the uterus until the large blood vessels could be seen. These were individually clamped, burned, cut. In like fashion the cardinal broad ligaments on the right were serially skeletonized. These were clamped, burned, cut and brought down the lateral edge of the cervix until the uterine vessels could be seen on the right. The uterine vessels were then serially skeletonized clamped, burned, cut. Hemostasis was assured and blanching of the uterus was noted a colpotomy incision was then made and the cervix uterus and tubes removed through the vagina. The vagina was then closed with continuous running 0V lock from lateral edge to lateral edge back to the midline. Irrigation undertaken until clear and hemostasis was assured. The gas was removed from the abdomen after the robot was undocked. The trocars removed and the incisions closed with 4-0 Monocryl and glue. Attention was then turned to the sling procedure. An 18 Norwegian catheter was replaced. An suburethral incision was made at the midportion and the lateral bladder space is emptied entered by blunt dissection. The catheter guide was then placed and retracted laterally. The right retropubic bladder space entered at a 45 degree angle behind the pubic bone upto35? to the fashion skin. In like fashion opposite to retro pubic bladder space was entered after retracting the bladder to the op opposite direction. This was entered at a 45 degree angle upto30? through the fascia and skin. The 70degree cystoscope was then inserted after removing the catheter. No injury seen this was then brought up to the tightness of an open pee
[2021-08-23] MEDS: fentaNYL CITRATE INJ (*CRX) 100 MCG/2 ML VIAL 25 MCG IV PUSH ×6 (11:26→13:35)
[2021-08-23] MEDS: diphenhydrAMINE HCl INJ 50 MG/ML VIAL 12.5 MG IV PUSH ×2 (12:16→12:53)
[2021-08-23] MEDS: DEXTROSE 5%/LACTATED RINGERS 1,000 ML 125 ML IV CONT (15:15)
[2021-08-23] MEDS: DOCUSATE SODIUM 100 MG CAPSULE PO (16:12)
[2021-08-23] MEDS: KETOROLAC 30 MG/ML VIAL (*BKC) IV PUSH ×2 (16:13→22:45)
[2021-08-23] MEDS: HYDROcodone/acetaminophen (*CRX) 5-325 MG TABLET 1 TAB PO (19:09)
--- NOTE | 2021-08-23 20:50 | ADMGEN ---
1430-This patient, Kaya Quintero, was admitted to OB 2nd Floor Room 289-00. Patient/family oriented to hospital policies and general routines including ID bracelet, bed and alarms, visiting hours, pain management, procedures, bathroom and other care routines, personal items, smoking policy, room service/diet, and visiting hours. Information on how to activate the Rapid Response Team has been discussed. Patient/Family are encouraged to report perceived risks to care and to ask questions if they do not understand what they are told or what they should do.
[2021-08-24] MEDS: HYDROcodone/acetaminophen (*CRX) 5-325 MG TABLET 1 TAB PO ×3 (01:48→08:22)
[2021-08-24] MEDS: IBUPROFEN 600 MG TABLET PO (04:39)
[2021-08-24 04:40] VITALS: BP 121/61; PULSE 77; RESP 16; TEMP 36.7
[2021-08-24 05:21] LABS: Basophils Percent Auto 0.1 % (0.2-1.2); Eosinophils Percent Auto 0.1 % (0-4.4); Hematocrit 42.9 % (37.0-47.0); Hemoglobin 13.6 g/dL (12.0-15.0); Immature Granulocyte Absolute 0.05 K/mm3 (0.00-0.031); Immature Granulocyte Percent A 0.3 % (0-0.5); Lymphocytes Absolute Auto 1.87 K/mm3 (0.9-3.2); Lymphocytes Percent Auto 12.3 % (18.3-44.2); Mean Corpuscular HGB Conc 31.7 g/dl (32-36); Mean Corpuscular Volume 94.7 fl (80-100); Mean Platelet Volume 10.4 fl (7.4-10.4); Monocytes Absolute Auto 0.9 K/mm3 (0.1-0.6); Monocytes Percent Auto 6.1 % (2.6-8.5); Neutrophils Absolute Auto 12.3 K/mm3 (1.3-6.7); Neutrophils Percent Auto 81.1 % (45.5-73.1); Platelet Count Result 237 k/mm3 (150-375); Red Blood Count 4.53 M/mm3 (4.2-5.4); Red Cell Distribution Width 13.7 % (11.5-14.5); White Blood Count 15.2 K/mm3 (4.5-10.0)
--- NOTE | 2021-08-24 06:39 | PM.DS ---
DS: Admitting Diagnosis Discharge Date 08/24/2021 Admitting Diagnosis Uterine prolapse/stress urinary incontinence/pelvic pain DS: Discharge Diagnosis Discharge Diagnosis (1) Primary stress urinary incontinence: Code(s): N39.3 - Stress incontinence (female) (male) Status: Acute (2) Pelvic pain: Code(s): R10.2 - Pelvic and perineal pain Status: Acute (3) Uterine prolapse: Code(s): N81.4 - Uterovaginal prolapse, unspecified Status: Acute (4) Asthma: Code(s): J45.909 - Unspecified asthma, uncomplicated Status: Acute DS: Summary Hospital Course Reason for hospitalization: Patient was readmitted for robotic hysterectomy bilateral salpingectomy and sling procedure. Hospital Course: Patient underwent robotic total vaginal hysterectomy and bilateral salpingectomy. She had a sling as well. Her hospital course was unremarkable. She remained afebrile. She was up, voiding without difficulty, ambulating, and generally without complaints. Time Spent with Patient Time attestation: Total time spent providing and/or coordinating discharge services: DS: Data Data Completed and Pending Pending studies at discharge: Pending at discharge 08/23/21 10:15 Surgical [PTH] Routine Labs on day of discharge: Labs from last 24 hours 08/24/21 04:38 WBC 15.2 H RBC 4.53 Hgb 13.6 Hct 42.9 MCV 94.7 MCH 30.0 MCHC 31.7 L RDW 13.7 Plt Count 237 MPV 10.4 Immature Gran % (Auto) 0.3 Neut % (Auto) 81.1 H Lymph % (Auto) 12.3 L [place] % (Auto) 6.1 Eos % (Auto) 0.1 Baso % (Auto) 0.1 L Lymph # (Auto) 1.87 [place] # (Auto) 0.9 H Eos # (Auto) 0.0 Baso # (Auto) 0.0 Abs Immat Gran (auto) 0.05 H Absolute Neuts (auto) 12.3 H Absolute Nucleated RBC 0.0 Nucleated RBC % 0.0 Discharge Plan Discharge Patient Disposition: Home, Self-Care Stand Alone Forms: General Discharge Instructions Follow-up/Referrals: Joni Yates MD [Physician] - Discharge Medications: New hydrocodone-acetaminophen 5-325 mg tablet 1 tablet PO Q4H PRN (Reason: pain) Qty: 30 0RF Continued ergocalciferol (vitamin D2) 1,250 mcg (50,000 unit) capsule 1,250 mcg PO WEEKLY Rx Instructions: Tuesdays levothyroxine 75 mcg capsule 75 mcg PO QAM epinephrine [EpiPen] 0.3 mg/0.3 mL Auto-Injector 0.3 mg IM ONCE PRN (Reason: Allergic Reaction) escitalopram oxalate 20 mg tablet 20 mg PO QAM montelukast [Singulair] 10 mg tablet 10 mg PO DAILY Qty: 90 2RF Dulera 200-5 mcg/actuation HFA aerosol inhaler 2 puff inhalation BID Qty: 8.8 5RF albuterol sulfate 90 mcg/actuation HFA aerosol inhaler 2 puff INHALATION DIRECTED PRN (Reason: Shortness Of Breath) Qty: 8.5 2RF
--- NOTE | 2021-08-24 06:42 | PM.GYNPNOP ---
SENIOR MILITARY ANALYST - A/P Assessment and plan (1) Primary stress urinary incontinence: Code(s): N39.3 - Stress incontinence (female) (male) Status: Acute (2) Pelvic pain: Code(s): R10.2 - Pelvic and perineal pain Status: Acute (3) Uterine prolapse: Code(s): N81.4 - Uterovaginal prolapse, unspecified Status: Acute (4) Asthma: Code(s): J45.909 - Unspecified asthma, uncomplicated Status: Acute (5) Generalized anxiety disorder: Code(s): F41.1 - Generalized anxiety disorder Status: Acute (6) Hypothyroid: Code(s): E03.9 - Hypothyroidism, unspecified Status: Acute Postoperative Procedures: Procedures Operation Date: 08/23/21 09:30 Actual Procedure Side Surgeon p Robotic Assisted Total Vaginal Hysterectomy, Bilateral Salpingectomy Bilateral Joni Miner MD s Tension Free Vaginal Taping Not Applicable Joni Miner MD Postoperative day: 1 Postoperative status: doing well Postoperative plan: routine post-op care, advance diet and discharge Time Spent With Patient Time: Total time spent is greater than 50% in coordination of care (as documented) at patient's floor/unit and/or counseling patient: Time with patient: less than 15 minutes SENIOR MILITARY ANALYST- PN:Subj Post-Op Subjective Date/time seen: 08/24/21 06:42 Subjective: patient reports feeling better, patient has no complaints, patient desires discharge, pain is well controlled and patient is tolerating oral intake Review of Systems Review of Systems: CONSTITUTIONAL: Denies fever, chills, or sweats. EYES: Denies visual changes, redness, or discharge. ENT: Denies rhinorrhea, congestion, sore throat, or otalgia. CARDIOVASCULAR: Denies chest pain, palpitations, or edema. RESPIRATORY: Denies cough or dyspnea. GASTROINTESTINAL: Denies abdominal pain, nausea, vomiting, or diarrhea. GENITOURINARY: Denies dysuria or hematuria. SKIN: Denies rash or itching. MUSCULOSKELETAL: Denies back pain,right lateral ankle joint pain, or myalgia. NEUROLOGIC: Denies headache, numbness, or weakness. PSYCHIATRIC: Positive for history of anxiety or depression. All systems reviewed & are unremarkable except as noted in HPI and below SENIOR MILITARY ANALYST - PN: Obj Data Vital Signs Vital Signs: Vital Signs - 24 hr 08/23/21 08:15 08/23/21 11:05 08/23/21 11:20 Temperature 98.3 F 98 F Pulse Rate 66 70 78 Respiratory Rate 16 16 16 Blood Pressure 119/70 114/72 118/80 Pulse Oximetry 97 100 100 Oxygen Delivery Room Air Simple Face Mask Simple Face Mask Oxygen Flow Rate 8 8 08/23/21 11:35 08/23/21 11:50 08/23/21 12:05 Temperature Pulse Rate 69 66 70 Respiratory Rate 12 10 L 15 Blood Pressure 106/70 127/76 130/84 Pulse Oximetry 100 98 96 Oxygen Delivery Simple Face Mask Simple Face Mask Room Air Oxygen Flow Rate 8 8 08/23/21 12:20 08/23/21 12:35 08/23/21 12:50 Temperature Pulse Rate 67 71 64 Respiratory Rate 12 12 12 Blood Pressure 126/83 127/81 127/80 Pulse Oximetry 95 94 95 Oxygen Delivery Room Air Room Air Room Air Oxygen Flow Rate 08/23/21 13:05 08/23/21 13:20 08/23/21 13:35 Temperature Pulse Rate 73 68 70 Respiratory Rate 10 L 10 L 12 Blood Pressure 109/84 110/83 108/83 Pulse Oximetry 95 95 93 Oxygen Delivery Room Air Room Air Room Air Oxygen Flow Rate 08/23/21 13:50 08/23/21 14:05 08/23/21 15:00 Temperature 98.3 F Pulse Rate 65 73 67 Respiratory Rate 10 L 12 16 Blood Pressure 105/76 102/74 116/67 Pulse Oximetry 94 96 96 Oxygen Delivery Room Air Room Air Oxygen Flow Rate 08/23/21 18:50 08/23/21 18:50 08/23/21 14:45 Temperature 97.8 F Pulse Rate 91 91 Respiratory Rate 16 16 Blood Pressure 121/71 Pulse Oximetry 96 Oxygen Delivery Room Air Room Air Oxygen Flow Rate 08/23/21 23:00 08/23/21 23:00 08/24/21 04:40 Temperature 98 F 98.1 F Pulse Rate 93 77 Respiratory Rate 16 16 Blood Pressure 116/54 L 121/61 Pulse Oximetry Oxygen Delivery Room Air Oxyg
[2021-08-24 07:40] VITALS: BP 124/83; PULSE 62; RESP 14; TEMP 36.9; O2SAT 99
--- NOTE | 2021-08-24 07:52 | OBPPTRN ---
Patient transferred to post room # 285 via wheelchair. Support person present. Oriented to unit, room, information board, rooming in, admission packet and security measures. Patient verbalizes understanding.
--- NOTE | 2021-08-24 07:58 | P.PNAN_ITS ---
Anes - Prog Note Post-Op Date/Time: 08/24/21 07:58 Cardiovascular status: normal Respiratory status: normal Airway patency: baseline Mental status: baseline Post-Op hydration status: normal Vital Signs: Last Vital Signs Temp 36.7 C 08/24/21 04:40 Pulse 77 08/24/21 04:40 Resp 16 08/24/21 04:40 BP 121/61 08/24/21 04:40 Pulse Ox 96 08/23/21 15:00 O2 Del Method Room Air 08/24/21 04:40 O2 Flow Rate 8 08/23/21 11:50 Pain Score (VAS): 03/28 I/O: Intake & Output 08/23/21 08/23/21 08/24/21 15:59 23:59 07:59 Intake Total 1850 2810 Output Total 65 2050 Balance 1785 760 Laboratory Tests 08/24/21 04:38 08/24/21 04:38 WBC 15.2 H RBC 4.53 Hgb 13.6 Hct 42.9 MCV 94.7 MCH 30.0 MCHC 31.7 L RDW 13.7 Plt Count 237 MPV 10.4 Immature Gran % (Auto) 0.3 Neut % (Auto) 81.1 H Lymph % (Auto) 12.3 L [place] % (Auto) 6.1 Eos % (Auto) 0.1 Baso % (Auto) 0.1 L Lymph # (Auto) 1.87 [place] # (Auto) 0.9 H Eos # (Auto) 0.0 Baso # (Auto) 0.0 Abs Immat Gran (auto) 0.05 H Absolute Neuts (auto) 12.3 H Absolute Nucleated RBC 0.0 Nucleated RBC % 0.0 Post-procedural complaints: none Patient Feedback: Patient satisfied with anesthetic care.
[2021-08-24] MEDS: ENOXAPARIN 40 MG/0.4 ML SYRINGE SUB-Q (08:22)
[2021-08-24] MEDS: DOCUSATE SODIUM 100 MG CAPSULE PO (08:23)
== END 2021-08-24 09:06 | disposition home or self-care (01) ==
LOC: ANHSURGERY 07:03 → ANHOB2 14:58
PROVIDERS: PCP Family Medicine Adolescent Medicine; Visit Provider Obstetrics & Gynecology
PROC: (CPT 57288; principal; 2021-08-23 09:30)
PROC: 0TSD0ZZ Reposition Urethra, Open Approach (ICD-10-PCS; CPT 57288; 2021-08-23 09:30)
DX: N81.4 Uterovaginal prolapse, unspecified (principal); R10.2 Pelvic and perineal pain; N39.3 Stress incontinence (female) (male); J45.909 Unspecified asthma, uncomplicated; E03.9 Hypothyroidism, unspecified; Z79.51 Long term (current) use of inhaled steroids; F41.1 Generalized anxiety disorder; E66.9 Obesity, unspecified; Z68.37 Body mass index [BMI] 37.0-37.9, adult
CPT/HCPCS: 57288; 58552; S2900; 36415; 85025; 88307; 99199; A9270; C1771; J0690; J1100; J1170; J1200; J1650; J1885; J2250; J2405; J2704; J2710; J3010; J7030; J7120; J7121

== ENCOUNTER 2021-12-23 12:18 | Emergency (ER) | payer OTHER, SELFPAY ==
[2021-12-23 13:02] VITALS: BP 118/72; PULSE 96; RESP 14; TEMP 36.5; O2SAT 98
--- NOTE | 2021-12-23 13:02 | ED.URI ---
HPI - URI/Sore Throat General Chief Complaint: Upper Respiratory Infection Stated Complaint: head cold dizzy achey Time Seen by Provider: 12/23/21 13:08 Source: patient and RN notes reviewed Mode of arrival: ambulatory Limitations: no limitations History of Present Illness HPI Narrative: 41-year-old female presents with concern for fever, sinus congestion that started this morning. Reports her daughter has similar symptoms. Reports she had close exposure to COVID last week. Denies shortness of breath, sore throat MD elicited complaint: sore throat Related Data Home Medications Medication Instructions Recorded Confirmed epinephrine 0.3 mg/0.3 mL 0.3 mg IM ONCE PRN Allergic 10/31/19 11/27/21 injection, auto-injector (EpiPen) Reaction levothyroxine 75 mcg capsule 75 mcg PO QAM 03/14/21 11/27/21 ergocalciferol (vitamin D2) 1,250 1,250 mcg PO WEEKLY 06/14/21 11/27/21 mcg (50,000 unit) capsule escitalopram oxalate 20 mg tablet 20 mg PO QAM 08/16/21 11/27/21 Allergies Allergy/AdvReac Type Severity Reaction Status Date / Time cat dander Allergy Severe Difficulty Verified 08/23/21 07:36 Breathing dog dander Allergy Mild Other Verified 08/23/21 07:36 grape Allergy Anaphylaxis Verified 08/23/21 07:36 pomegranate Allergy Anaphylaxis Verified 08/23/21 07:36 Review of Systems Review of Systems: CONSTITUTIONAL: Reports malaise, fever. EYES: Denies visual changes, redness, or discharge. ENT: Reports rhinorrhea, congestion. Denies sinus pain, otalgia and sore throat. CARDIOVASCULAR: Denies chest pain, palpitations, or edema. RESPIRATORY: Denies cough. Denies dyspnea. GASTROINTESTINAL: Denies abdominal pain, nausea, vomiting, diarrhea SKIN: Denies rash or itching. MUSCULOSKELETAL: Reports myalgia. NEUROLOGIC: Denies headache. All systems reviewed & are unremarkable except as noted in HPI and below PMFSH Past Medical History Medical History Anxiety Asthma Generalized anxiety disorder Hypothyroid Irregular bleeding Menorrhagia (normal spontaneous vaginal delivery) x 2 S/p left hip fracture Surgical History Surgical History H/O lumpectomy Rt breast lumpectomy History of endometrial ablation S/P tubal ligation Family History Family History Grandparent Breast cancer Acute myocardial infarction Cerebrovascular accident Diabetes mellitus Grandparent Family history of malignant neoplasm of breast Breast cancer Father Asthma Mother Heart disease Stents placed Diabetes mellitus Hypertension Other Depression Social History Social History Smoking status: Never smoker Second hand tobacco smoke exposure: No Alcohol intake: current Drinks per week: 1 Alcohol use details: once weekly Substance use: never Substance use type: does not use Gender identity (if verbalized by the patient): Female Sexual Orientation (if Verbalized by the Patient): Straight or Heterosexual Spiritual care concerns: No Agree to blood products: Yes Comments At time of signature, agree with nursing past medical, surgical, social and family history. There is no relevant family history pertinent to the presenting complaint Exam Narrative: GENERAL: Well-appearing, well-nourished, and in no acute distress. HEAD: Normocephalic EYES: PERRLA, conjunctivae clear ENT: Nares clear, clear discharge. Mucous membranes moist. TM pearly amato with dull light reflex bilaterally; no tragal tenderness. Oropharynx not erythematous without lesions. Tonsils not enlarged and without exudate, no drooling, no hoarseness, no trismus, uvula midline. NECK: Supple. No lymphadenopathy CHEST: Clear to auscultation, breath sounds equal. No wheezing, rhonchi, rales, or stridor. No respiratory
== END 2021-12-23 13:59 | disposition home or self-care (01) ==
PROVIDERS: Emergency Provider Nurse Practitioner; PCP Family Medicine Adolescent Medicine
DX: Z20.818 Contact with and (suspected) exposure to other bacterial communicable diseases (principal); J45.909 Unspecified asthma, uncomplicated; E03.9 Hypothyroidism, unspecified; F41.1 Generalized anxiety disorder
CPT/HCPCS: 87081; 87880; 99213; G0463

== ENCOUNTER 2022-01-23 12:47 | Emergency (ER) | payer OTHER, SELFPAY ==
--- NOTE | ~2022-01-23 | XR_ITS ---
XR ankle RT min 3V DATE: 01/23/2022 13:29 INDICATION: Drug by horse. Pain. TECHNIQUE: 4 views COMPARISON: None FINDINGS: Mild lateral soft tissue swelling. No fracture or dislocation of the ankle or disruption of the ankle mortise. Plantar and posterior calcaneal enthesopathy. IMPRESSION: Mild lateral soft tissue swelling Reviewed, dictated and finalized at location B. [facility] NURSE
--- NOTE | ~2022-01-23 | XR_ITS ---
XR knee RT min 4V DATE: 01/23/2022 13:28 INDICATION: Drug by horse. Pain and swelling TECHNIQUE: [place], AP and bilateral oblique views, crosstable lateral view. COMPARISON: None FINDINGS: No radiopaque soft tissue foreign body. No fracture or dislocation is detected. No radiopaq ue intra-articular loose body or chondrocalcinosis. Joint spaces are preserved. No periosteal reactio n or bone destruction. IMPRESSION: No significant abnormality Reviewed, dictated and finalized at location B. TENANCE AND REPAIR WORKER IMPRESSION: No significant abnormality
[2022-01-23 12:54] VITALS: BP 122/74; PULSE 100; RESP 20; TEMP 36.7; O2SAT 96
--- NOTE | 2022-01-23 12:58 | ED.LOWEXIN ---
HPI - Extremity Injury (Lower) General Chief Complaint: Extremity Injury, Lower Stated Complaint: Fall Injury/Right Knee / Ankle Time Seen by Provider: 01/23/22 12:58 Source: patient and RN notes reviewed History of Present Illness HPI Narrative: patient is a 41-year-old female who presents to urgent care with complaints of right knee and ankle pain with swelling. Patient states that she fell off a horse yesterday. Patient has been taking ibuprofen for the pain. Patient states that she is having increasing pain with weight-bearing hand. Denies of loss of consciousness or hitting her head. Denies any other injuries. No other acute complaints. No acute distress noted. Patient aware of the plan of care. Some parts of this dictation were generated by voice recognition software and may contain typographical and/or grammatical inaccuracies. Related Data Home Medications Medication Instructions Recorded Confirmed epinephrine 0.3 mg/0.3 mL 0.3 mg IM ONCE PRN Allergic 10/31/19 11/27/21 injection, auto-injector (EpiPen) Reaction levothyroxine 75 mcg capsule 75 mcg PO QAM 03/14/21 11/27/21 ergocalciferol (vitamin D2) 1,250 1,250 mcg PO WEEKLY 06/14/21 11/27/21 mcg (50,000 unit) capsule escitalopram oxalate 20 mg tablet 20 mg PO QAM 08/16/21 11/27/21 Allergies Allergy/AdvReac Type Severity Reaction Status Date / Time cat dander Allergy Severe Difficulty Verified 01/23/22 12:55 Breathing dog dander Allergy Mild Other Verified 01/23/22 12:55 grape Allergy Anaphylaxis Verified 01/23/22 12:55 pomegranate Allergy Anaphylaxis Verified 01/23/22 12:55 Review of Systems Review of Systems: CONSTITUTIONAL: Denies fever, chills, or sweats. EYES: Denies visual changes, redness, or discharge. ENT: Denies rhinorrhea, congestion, sore throat, or otalgia. CARDIOVASCULAR: Denies chest pain, palpitations, or edema. RESPIRATORY: Denies cough or dyspnea. GASTROINTESTINAL: Denies abdominal pain, nausea, vomiting, or diarrhea. GENITOURINARY: Denies dysuria or hematuria. SKIN: Denies rash or itching. MUSCULOSKELETAL: Reports of right ankle and right knee pain swelling NEUROLOGIC: Denies headache, numbness, or weakness. All other systems reviewed are negative, except as documented in HPI. [facility] Past Medical History Medical History Anxiety Asthma Generalized anxiety disorder Hypothyroid Irregular bleeding Menorrhagia (normal spontaneous vaginal delivery) x 2 S/p left hip fracture Surgical History Surgical History H/O lumpectomy Rt breast lumpectomy History of endometrial ablation S/P tubal ligation Family History Family History Grandparent Breast cancer Acute myocardial infarction Cerebrovascular accident Diabetes mellitus Grandparent Family history of malignant neoplasm of breast Breast cancer Father Asthma Mother Heart disease Stents placed Diabetes mellitus Hypertension Other Depression Social History Social History Smoking status: Never smoker Second hand tobacco smoke exposure: No Alcohol intake: current Drinks per week: 1 Alcohol use details: once weekly Substance use: never Substance use type: does not use Gender identity (if verbalized by the patient): Female Sexual Orientation (if Verbalized by the Patient): Straight or Heterosexual Spiritual care concerns: No Agree to blood products: Yes Comments At the time of my signature, I reviewed and agree with the nursing past medical, surgical, social, and family history. There is no relevant family history pertinent to the patient complaint. Exam Narrative: GENERAL: This is a well-nourished, well-developed patient, in no apparent distress. HEAD: normocephalic, atraumatic.
[2022-01-23 13:03] VITALS: BP 122/74; PULSE 100; RESP 20; TEMP 36.7; O2SAT 96
== END 2022-01-23 13:54 | disposition home or self-care (01) ==
PROVIDERS: Emergency Provider Nurse Practitioner Family; PCP Family Medicine Adolescent Medicine
DX: S93.401A Sprain of unspecified ligament of right ankle, initial encounter (principal); S96.911A Strain of unspecified muscle and tendon at ankle and foot level, right foot, initial encounter; S83.91XA Sprain of unspecified site of right knee, initial encounter; V80.010A Animal-rider injured by fall from or being thrown from horse in noncollision accident, initial encounter; J45.909 Unspecified asthma, uncomplicated; E03.9 Hypothyroidism, unspecified; F41.1 Generalized anxiety disorder
CPT/HCPCS: 73564; 73610; 99214; G0463

== ENCOUNTER 2022-06-05 10:48 | Outpatient (CLI) | payer OTHER, SELFPAY ==
[2022-06-05 11:23] LABS: Hematocrit 43.9 % (37.0-47.0); Hemoglobin 13.9 g/dL (12.0-15.0); Mean Corpuscular HGB Conc 31.7 g/dl (32-36); Mean Corpuscular Hemoglobin 30.3 pg (26-34); Mean Corpuscular Volume 95.9 fl (80-100); Mean Platelet Volume 9.8 fl (7.4-10.4); Platelet Count Result 221 k/mm3 (150-375); Red Blood Count 4.58 M/mm3 (4.2-5.4); Red Cell Distribution Width 13.7 % (11.5-14.5); White Blood Count 8.2 K/mm3 (4.5-10.0)
[2022-06-05 11:24] LABS: Alanine Aminotransferase 23 U/L (6-35); Albumin Level 4.4 g/dL (3.5-5.1); Alkaline Phosphatase 67 U/L (38-126); Anion Gap 7 mmol/L (8-16); Aspartate Amino Transferase 19 U/L (14-36); Bilirubin,Total 0.9 mg/dL (0.2-1.3); Blood Urea Nitrogen 10 mg/dL (7-17); Calcium 8.7 mg/dL (8.4-10.2); Carbon Dioxide 27 mmol/L (22-30); Chloride 104 mmol/L (98-107); Cholesterol 174 mg/dL (0-200); Estimated Glomerular Filt Rate > 60; Glucose 107 mg/dL (65-110); HDL Direct 43 mg/dL; Potassium 4.1 mmol/L (3.4-5.0); Sodium 138 mmol/L (137-145); Triglycerides 318 mg/dL (<150)
[2022-06-05 11:35] LABS: LDL Cholesterol Direct 93 mg/dL
== END 2022-06-05 10:49 | disposition home or self-care (01) ==
LOC: ANHLAB 10:50
PROVIDERS: PCP Family Medicine Adolescent Medicine; Visit Provider Nurse Practitioner Family
DX: F41.1 Generalized anxiety disorder (principal); E03.9 Hypothyroidism, unspecified; Z13.220 Encounter for screening for lipoid disorders
CPT/HCPCS: 36415; 80053; 80061; 84443; 85027

== ENCOUNTER 2022-12-25 09:27 | Outpatient (CLI) | payer OTHER, SELFPAY ==
--- NOTE | ~2022-12-25 | XR_ITS ---
EXAMINATION: XR heel LT min 2V INDICATION: Left foot pain TECHNIQUE: Two views of the left heel are obtained COMPARISON: None available FINDINGS: No fracture, dislocation, or subluxation. Posterior and plantar calcaneal enthesophytes are noted. The soft tissues are unremarkable. IMPRESSION: 1. No acute osseous abnormality. Reviewed, dictated and finalized at location L. [employer] SHIPPING CLERK
== END 2022-12-25 09:28 | disposition home or self-care (01) ==
PROVIDERS: PCP Family Medicine Adolescent Medicine; Visit Provider Nurse Practitioner Family
DX: M79.672 Pain in left foot (principal)
CPT/HCPCS: 73650

== ENCOUNTER 2023-09-11 03:07 | Emergency (ER) | payer OTHER, SELFPAY ==
[2023-09-11 03:10] VITALS: BP 127/83; PULSE 66; RESP 18; TEMP 36.7; O2SAT 99
[2023-09-11 03:40] VITALS: BP 126/71; PULSE 63; RESP 15; O2SAT 99
[2023-09-11] MEDS: diphenhydrAMINE HCl INJ 50 MG/ML VIAL 25 MG IV PUSH (05:33)
[2023-09-11 05:40] VITALS: BP 120/72; PULSE 60; RESP 14; O2SAT 99
--- NOTE | 2023-09-11 06:06 | PC.NURSE ---
Pt states she feels better and she does not want to wait any longer to be seen. Pt was highly encouraged to stay and be seen by a provider by this RN. Pt states she still wishes to leave and she will return to ED if symptoms return. Pt's IV was removed. Pt ambulated out of the ED w/ a steady gait accompanied by her significant other.
== END 2023-09-11 06:41 | disposition left against medical advice (07) ==
LOC: ANHED 06:12
PROVIDERS: Emergency Provider Student in an Organized Health Care Education/Training Program; PCP Family Medicine Adolescent Medicine
DX: R06.02 Shortness of breath (principal)
CPT/HCPCS: 96374; 99199; J1200

== ENCOUNTER 2024-01-28 11:56 | Emergency (ER) | payer OTHER, SELFPAY ==
[2024-01-28 12:07] VITALS: BP 121/80; PULSE 97; RESP 16; TEMP 36.5; O2SAT 98
--- NOTE | 2024-01-28 12:10 | ED.EAR ---
HPI - Ear Problem General Chief complaint: Ear Stated complaint: Ear Pain/Head Cold Time Seen by Provider: 01/28/24 12:10 Source: patient Mode of arrival: ambulatory Limitations: no limitations History of Present Illness HPI Narrative: 43-year-old female presents with complaint of nasal congestion, postnasal drainage, sore throat, sinus pressure for 2 days. Woke up this morning with right ear pain. Has started an [id number] medication to treat congestion. Afebrile. All systems reviewed and negative except as noted above. Related Data Home Medications ?Medication ?Instructions ?Recorded ?Confirmed ?Last Taken ?Type levothyroxine 175 mcg tablet 87.5 mcg PO DAILY 07/22/23 01/28/24 Unknown History Allergies Allergy/AdvReac Type Severity Reaction Status Date / Time cat dander Allergy Severe Difficulty Verified 01/28/24 12:14 Breathing dog dander Allergy Mild Other Verified 01/28/24 12:14 grape Allergy Anaphylaxis Verified 01/28/24 12:14 pomegranate Allergy Anaphylaxis Verified 01/28/24 12:14 green been AdvReac Severe Shock Uncoded 01/28/24 12:14 Review of Systems Review of Systems: CONSTITUTIONAL: Denies fever, chills, or sweats. Reports fatigue. EYES: Denies visual changes, redness, or discharge. ENT: Reports rhinorrhea, congestion, sore throat, postnasal drainage, right ear pain CARDIOVASCULAR: Denies chest pain, palpitations, or edema. RESPIRATORY: Denies cough or dyspnea. GASTROINTESTINAL: Denies abdominal pain, nausea, vomiting, or diarrhea. GENITOURINARY: Denies dysuria or hematuria. SKIN: Denies rash or itching. MUSCULOSKELETAL: Denies back pain, joint pain, or myalgia. NEUROLOGIC: Denies headache, numbness, or weakness. PSYCHIATRIC: Denies anxiety or depression. All other systems reviewed are negative, except as documented in HPI. [facility] Past Medical History Medical History Anxiety Asthma Generalized anxiety disorder Hypothyroid Irregular bleeding Menorrhagia (normal spontaneous vaginal delivery) x 2 Obesity (BMI 30-39.9) S/p left hip fracture Surgical History Surgical History H/O lumpectomy Rt breast lumpectomy History of endometrial ablation S/P tubal ligation Family History Family History Grandparent Breast cancer Acute myocardial infarction Cerebrovascular accident Diabetes mellitus Grandparent Family history of malignant neoplasm of breast Breast cancer Father Asthma Mother Heart disease Stents placed Diabetes mellitus Hypertension Other Depression Social History Social History Smoking status: Never smoker Second hand tobacco smoke exposure: No Alcohol intake: current Drinks per week: 1 Alcohol use details: once weekly Substance use: never Substance use type: does not use Lack of Transportation: No Lack of Food: Never True Current Housing: I Have Housing Concerned About Future Housing: No Difficulty Paying Gas/Electric Bills: No Difficulty Paying for Meds: No Currently Unemployed: No Education: High School Diploma/GED Difficulty w/ Childcare or Family Care: No Living arrangements: with family Occupation/Education: unemployed Gender identity (if verbalized by the patient): Female Sexual Orientation (if Verbalized by the Patient): Straight or Heterosexual Spiritual care concerns: No Agree to blood products: Yes Comments At time of signature, agree with nursing past medical, surgical, social and family history. There is no relevant family history pertinent to the presenting complaint. Exam Narrative: GENERAL: This is a well-nourished, well-developed patient, in no apparent distress. HEAD: normocephalic, atraumatic. EYES: PERRL. Sclera clear/white. Vision is grossly intact. EARS: External ears normal, auditory canals clear and without drainage, right TM erythematous and retracted. Left TM is normal. No perforation bilaterally. Hearing grossly intact. NOSE: External nose normal with congested with purulent nasal drainage, erythema to bilateral nares THROAT: Mucous membranes moist, posterior pharynx clear. NECK: Neck supple, non-tender without lymphadenopathy, masses or thyromegaly. CARDIOVASCULAR: Regular rate and rhythm without murmurs, gallops, or rubs. RESPIRATORY: Clear to auscultation. Breath sounds equal bilaterally. No wheezes, rales, or rhonchi. SKIN: warm, Dry, intact with no suspicious lesions or rash, good texture and turgor. NEURO: awake, alert, and oriented to person, place and time. There were no obvious focal neurologic abnormalities. EXTREMITIES: No joint tenderness, effusion, or edema noted. Course Course Level of Care: Express Care Visit Vital Signs Vital signs: Vital Signs Temperature 36.5 C 01/28/24 12:07 Pulse Rate 97 01/28/24 12:07 Respiratory Rate 16 01/28/24 12:07 Blood Pressure 121/80 01/28/24 12:07 Pulse Oximetry 98 01/28/24 12:07 Temperature 36.5 C 01/28/24 12:07 Pulse Rate 97 01/28/24 12:07 Respiratory Rate 16 01/28/24 12:07 Blood Pressure 121/80 01/28/24 12:07 Pulse Oximetry 98 01/28/24 12:07 Reviewed Medical Decision Making MDM Narrative Medical decision making narrative: Patient is aware of diagnosis, understands and agrees to treatment plan. Anticipatory guidance given. Patient agrees to follow-up as directed and is aware of reasons to seek care at the emergency department. Portions of this record may have been created with voice recognition software Vital Signs Vital Signs: Vital Signs Temperature 36.5 C 01/28/24 12:07 Pulse Rate 97 01/28/24 12:07 Respiratory Rate 16 01/28/24 12:07 Blood Pressure 121/80 01/28/24 12:07 Pulse Oximetry 98 01/28/24 12:07 Temperature 36.5 C 01/28/24 12:07 Pulse Rate 97 01/28/24 12:07 Respiratory Rate 16 01/28/24 12:07 Blood Pressure 121/80 01/28/24 12:07 Pulse Oximetry 98 01/28/24 12:07 Discharge Plan Discharge Clinical Impression: Acute right otitis media, Acute sinusitis Patient Disposition: Home, Self-Care Condition: Stable Instructions: Antibiotic Form Additional Instructions: Take antibiotic as prescribed until gone. Continue taking exlu-nou-cmrvatf medication to treat symptoms such as DayQuil NyQuil cold and Sinus. Drink at least 64 oz of water a day. Follow-up with your primary care physician if symptoms are not improving. Patient Language: Armenian Prescriptions: New amoxicillin 875 mg tablet 875 mg PO Q12H 10 Days Qty: 20 0RF No Action Dulera 200-5 mcg/actuation HFA aerosol inhaler 2 puff inhalation BID Qty: 13 8RF primidone 50 mg tablet 50 mg PO QHS Qty: 30 5RF levothyroxine 175 mcg tablet 87.5 mcg PO DAILY phentermine 37.5 mg tablet 37.5 mg PO DAILY Qty: 30 3RF Rx Instructions: must administer 30 minutes before or 1-2 hours after breakfast epinephrine [EpiPen] 0.3 mg/0.3 mL auto-injector 0.3 mg IM ONCE PRN (Reason: Allergic Reaction) Qty: 2 1RF fluoxetine 20 mg tablet 20 mg PO DAILY Qty: 90 2RF acyclovir 400 mg tablet 400 mg PO TID Qty: 15 4RF Rx Instructions: tid x 5 days prn bupropion HCl 300 mg tablet extended release 24 hr 300 mg PO QAM Qty: 30 7RF albuterol sulfate 90 mcg/actuation HFA aerosol inhaler See Rx Instructions .ROUTE .COMPLEX Qty: 8.5 4RF Dose Instruction: INHALE 2 PUFFS BY MOUTH DIRECTED NEEDED FOR SHORTNESS OF BREATH Rx Instructions: INHALE 2 PUFFS BY MOUTH DIRECTED NEEDED FOR SHORTNESS OF BREATH ondansetron HCl 4 mg tablet 4 mg PO Q6H PRN (Reason: nausea and vomiting) Qty: 20 1RF Follow-up/Referrals: Kamlesh Agarwal MD [Primary Care Provider] - Time of Disposition: 12:17
== END 2024-01-28 12:23 | disposition home or self-care (01) ==
PROVIDERS: Emergency Provider Nurse Practitioner Family; PCP Family Medicine Adolescent Medicine
DX: H66.91 Otitis media, unspecified, right ear (principal); J01.90 Acute sinusitis, unspecified; E03.9 Hypothyroidism, unspecified; J45.909 Unspecified asthma, uncomplicated; E66.9 Obesity, unspecified; Z68.33 Body mass index [BMI] 33.0-33.9, adult
CPT/HCPCS: 99213; G0463

== ENCOUNTER 2024-02-06 09:51 | Emergency (ER) | payer OTHER, SELFPAY ==
--- NOTE | ~2024-02-06 | XR_ITS ---
EXAMINATION: XR foot LT min 3V DATE: 02/06/2024 10:20 INDICATION: Left foot injury and pain. TECHNIQUE: 4 views of left foot were obtained. COMPARISON: Left calcaneus radiographs 12/25/2022 FINDINGS: Alignment is normal. No fracture. There is mild osteoarthritis of first metatarsophalangeal joint. There are enthesophytes at the posterior and plantar aspects of calcaneal tuberosity. IMPRESSION: 1. Mild osteoarthritis of first metatarsophalangeal joint. Reviewed, dictated and finalized at location A. APEUTIC RECREATION DIRECTOR
[2024-02-06 10:06] VITALS: BP 120/85; PULSE 78; RESP 16; TEMP 36.6; O2SAT 100
--- NOTE | 2024-02-06 10:26 | ED.LOWEXIN ---
HPI - Extremity Injury (Lower) General Chief Complaint: Extremity Injury, Lower Stated Complaint: Injured Left Foot Time Seen by Provider: 02/06/24 10:37 Source: patient and RN notes reviewed Mode of arrival: ambulatory Limitations: no limitations History of Present Illness HPI Narrative: 43-year-old female presents with concern for left foot pain. Reports on she slipped and rolled the foot. She reports pain started on the top of the foot and now is also on the bottom of the foot. She denies open skin, bruising, swelling MD complaint: foot injury Related Data Home Medications ?Medication ?Instructions ?Recorded ?Confirmed ?Last Taken ?Type levothyroxine 175 mcg tablet 87.5 mcg PO DAILY 07/22/23 01/28/24 Unknown History Allergies Allergy/AdvReac Type Severity Reaction Status Date / Time cat dander Allergy Severe Difficulty Verified 01/28/24 12:14 Breathing dog dander Allergy Mild Other Verified 01/28/24 12:14 grape Allergy Anaphylaxis Verified 01/28/24 12:14 pomegranate Allergy Anaphylaxis Verified 01/28/24 12:14 green been AdvReac Severe Shock Uncoded 01/28/24 12:14 Review of Systems Review of Systems: CONSTITUTIONAL: Denies malaise, chills, sweats, or fever. SKIN: Denies rash or itching, open skin, laceration, abrasion, redness, warmth, swelling. MUSCULOSKELETAL: Reports left foot pain NEUROLOGIC: Denies numbness, weakness All systems reviewed & are unremarkable except as noted in HPI and below PMFSH Past Medical History Medical History Anxiety Asthma Generalized anxiety disorder Hypothyroid Irregular bleeding Menorrhagia (normal spontaneous vaginal delivery) x 2 Obesity (BMI 30-39.9) S/p left hip fracture Surgical History Surgical History H/O lumpectomy Rt breast lumpectomy History of endometrial ablation S/P tubal ligation Family History Family History Grandparent Breast cancer Acute myocardial infarction Cerebrovascular accident Diabetes mellitus Grandparent Family history of malignant neoplasm of breast Breast cancer Father Asthma Mother Heart disease Stents placed Diabetes mellitus Hypertension Other Depression Social History Social History Smoking status: Never smoker Second hand tobacco smoke exposure: No Alcohol intake: current Drinks per week: 1 Alcohol use details: once weekly Substance use: never Substance use type: does not use Lack of Transportation: No Lack of Food: Never True Current Housing: I Have Housing Concerned About Future Housing: No Difficulty Paying Gas/Electric Bills: No Difficulty Paying for Meds: No Currently Unemployed: No Education: High School Diploma/GED Difficulty w/ Childcare or Family Care: No Living arrangements: with family Occupation/Education: unemployed Gender identity (if verbalized by the patient): Female Sexual Orientation (if Verbalized by the Patient): Straight or Heterosexual Spiritual care concerns: No Agree to blood products: Yes Comments At time of signature, agree with nursing past medical, surgical, social and family history. There is no relevant family history pertinent to the presenting complaint Exam Narrative: GENERAL: Well-appearing, well-nourished, and in no acute distress. HEAD: Normocephalic, atraumatic. EYES: PERRLA, conjunctivae clear NECK: Supple. CHEST: Speaks in full sentences. No respiratory distress. HEART: Regular rate and rhythm. Normal and equal peripheral pulses. EXTREMITIES: Left foot, digits have grossly normal strength and sensation, grossly normal range of motion. No edema or ecchymosis. Normal sensation with sensitivity to light touch and pain. No point tenderness. No open wounds, no skin tenting, no devitalized tissue or atrophy, no trophic changes, no obvious deformity, alignment normal, nearby joints and structures intact. Distal pulses palpable and equal bilaterally, skin warm, dry, pink. Capillary refill less than 3 seconds. SKIN: Warm, dry, no rash. NEURO: Alert and oriented x3. PSYCH: Normal mood and affect Course Course Emergency Course: Patient is aware of diagnosis, understands and agrees to treatment plan. Anticipatory guidance given. Patient agrees to follow-up as directed and is aware of reasons to seek care at the emergency department. Portions of this record may have been created with voice recognition software Level of Care: Express Care Visit Vital Signs Vital signs: Vital Signs Temperature 97.9 F 02/06/24 10:06 Pulse Rate 78 02/06/24 10:06 Respiratory Rate 16 02/06/24 10:06 Blood Pressure 120/85 02/06/24 10:06 Pulse Oximetry 100 02/06/24 10:06 Temperature 97.9 F 02/06/24 10:06 Pulse Rate 78 02/06/24 10:06 Respiratory Rate 16 02/06/24 10:06 Blood Pressure 120/85 02/06/24 10:06 Pulse Oximetry 100 02/06/24 10:06 Reviewed. MDM - Extremity Injury (Lower) MDM Narrative Medical decision making narrative: Patients injury and pain is consistent with musculoskeletal etiology. No signs of neurological or vascular compromise on exam. Compartments and tissues are soft without signs of compartment syndrome. Pain is felt appropriate for further evaluation on an outpatient basis. Imaging Data My impression: Images reviewed, interpreted by radiologist, agree, see report. Radiologist's impression: EXAMINATION: XR foot LT min 3V DATE: 02/06/2024 10:20 INDICATION: Left foot injury and pain. TECHNIQUE: 4 views of left foot were obtained. COMPARISON: Left calcaneus radiographs 12/25/2022 FINDINGS: Alignment is normal. No fracture. There is mild osteoarthritis of first metatarsophalangeal joint. There are enthesophytes at the posterior and plantar aspects of calcaneal tuberosity. IMPRESSION: 1. Mild osteoarthritis of first metatarsophalangeal joint. Critical Care Time Critical Care Time Critical Care Time: No Discharge Plan Discharge Clinical Impression: Foot sprain Patient Disposition: Home, Self-Care Condition: Stable Instructions: Foot Sprain (ED) Additional Instructions: Avoid activities that cause pain until the pain subsides. Ice to the area 20-30 minutes 4-6 times a day Elevate above heart Elastic wrap or orthopedic splint as directed for comfort for the next 5-7 days Tylenol for lesser pain Ibuprofen regularly for the next 2-3 days for the inflammation Follow up with your primary care provider if the condition is not improving within 1 week. If the condition worsens with numbness, tingling, decrease sensation with weakness seek treatment in the emergency room immediately. Patient Language: Icelandic Prescriptions: No Action amoxicillin 875 mg tablet 875 mg PO Q12H 10 Days Qty: 20 0RF Dulera 200-5 mcg/actuation HFA aerosol inhaler 2 puff inhalation BID Qty: 13 8RF primidone 50 mg tablet 50 mg PO QHS Qty: 30 5RF levothyroxine 175 mcg tablet 87.5 mcg PO DAILY phentermine 37.5 mg tablet 37.5 mg PO DAILY Qty: 30 3RF Rx Instructions: must administer 30 minutes before or 1-2 hours after breakfast epinephrine [EpiPen] 0.3 mg/0.3 mL auto-injector 0.3 mg IM ONCE PRN (Reason: Allergic Reaction) Qty: 2 1RF fluoxetine 20 mg tablet 20 mg PO DAILY Qty: 90 2RF acyclovir 400 mg tablet 400 mg PO TID Qty: 15 4RF Rx Instructions: tid x 5 days prn bupropion HCl 300 mg tablet extended release 24 hr 300 mg PO QAM Qty: 30 7RF albuterol sulfate 90 mcg/actuation HFA aerosol inhaler See Rx Instructions .ROUTE .COMPLEX Qty: 8.5 4RF Dose Instruction: INHALE 2 PUFFS BY MOUTH DIRECTED NEEDED FOR SHORTNESS OF BREATH Rx Instructions: INHALE 2 PUFFS BY MOUTH DIRECTED NEEDED FOR SHORTNESS OF BREATH ondansetron HCl 4 mg tablet 4 mg PO Q6H PRN (Reason: nausea and vomiting) Qty: 20 1RF Follow-up/Referrals: PHYSICIAN,PAYROLL REPRESENTATIVE [Primary Care Provider] -
== END 2024-02-06 10:47 | disposition home or self-care (01) ==
PROVIDERS: Emergency Provider Nurse Practitioner
DX: S93.602A Unspecified sprain of left foot, initial encounter (principal); E03.9 Hypothyroidism, unspecified; W01.0XXA Fall on same level from slipping, tripping and stumbling without subsequent striking against object, initial encounter
CPT/HCPCS: 73630; 99213; G0463

== ENCOUNTER 2024-02-19 17:47 | Emergency (ER) | payer OTHER, SELFPAY ==
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
[2024-02-19 17:55] VITALS: BP 128/81; PULSE 78; RESP 16; TEMP 36.4; O2SAT 98
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
== END 2024-02-19 19:50 | disposition home or self-care (01) ==
PROVIDERS: Emergency Provider Physician Assistant; PCP Family Medicine Adolescent Medicine
DX: S00.83XA Contusion of other part of head, initial encounter (principal); F41.9 Anxiety disorder, unspecified; E03.9 Hypothyroidism, unspecified; J45.909 Unspecified asthma, uncomplicated; V43.52XA Car driver injured in collision with other type car in traffic accident, initial encounter
CPT/HCPCS: 70450; 99284

== ENCOUNTER 2024-04-30 08:36 | Emergency (ER) | payer OTHER, SELFPAY ==
--- NOTE | ~2024-04-30 | XR_ITS ---
Lumbosacral Spine: AP and lateral views Clinical History: Pain Findings: The normal lordotic curve is maintained. The vertebral bodies and posterior elements are i ntact. There is mild degenerative disc narrowing at L5-S1. The sacroiliac joints are normally outlin ed. Impression: Mild degenerative disc narrowing at L5-S1. Reviewed, dictated and finalized at [facility]. Impression: Mild degenerative disc narrowing at L5-S1.
--- OUTSIDE RECORDS SUMMARY | 2024-04-30 08:38 | XMS_ITS | Continuity of Care Document ---
Author Organization [facility] Address [address] [place] [address] Phone Care Team Providers Care Cardiovascular Technologist Name Role Phone Uribe OD, Bang Unavailable Unavailable Procedures Procedure Date Contact Lens Check Eye Exam & Treatment Contact Lens Hydrophilic, Spherical Medical Tax Contact Lens Fit, Med Superv, Level 4 Se Eye Exam, New Patient Advance Directives Directive Yes / No Effective Date File Name No Information Encounters Encounter Description Practice Location Reason(s) For Visit Diagnoses Date Provider Providers Copied on Encounter [facility], [address] [place] [address] [address], [place], [place], [id number], tel:[phone] [facility] No Information 7-201 0 Uribe OD Bang. [address], [place], [place], [facility], [place]. tel:[phone] [facility], [address], [place], [place], [id number], [place] tel:[phone] [facility] No Information Oct- 0-201 0 Uribe OD Bang. [address], [address], [place], [address], [place]. tel:[phone] [facility], [id number] [place] [address] [address], [place], [place], [id number], [place] tel:[phone] [facility] No Information [address] [facility] [address], [place], [address], [place]. tel:[phone] Family History Family Member Type Diagnosis Age At Onset No Information Payers Payer name Insurance type Covered alliance party ID Authoriza tion(s) No Information Social History [...]
--- OUTSIDE RECORDS SUMMARY | 2024-04-30 08:38 | XMS_ITS | Data Portability ---
Author Organization [facility] [employer], Main Office Address [address] [place] [address] Assessment Encounter Date Assessment Date Assessment LastModified by Organization Details LastModified Time 03/28/2024 03/28/2024 This note is dictated and transcribed by [employer]. [employer] variances may occur. Despite proofreading, typographical errors may occur. Occasional wrong-word or 'cfagk-[id number]' substitutions may have occurred due to the inherent limitations of voice recording. Read the chart carefully and recognize, using context, where substitutions have occurred. jess Not available 03/28/2024 12:50:50 Plan of Treatment Reminders Order Date Submit Date Provider Last Modified By Organization Details Last Modified Time Details Appointments Establish ed Patient 15 2024 09:30A M Alonzo Hua DPM Not available Not available Not available Lab None recorded. Referral None recorded. Procedures None recorded. Surgeries None recorded. Imaging XR, foot, 3 or more view 2024 025 [email or web address] [facility] [place], [facility], [place], [address], 03/28/2024 12:51:32 Medication Orders None recorded. Patient TargetsNo targets recorded. Patient Instructions Encounter Date Encounter Id Patient Instructions Last Modified By Organization Details Last Modified Time 03/28/2024 [id number] plantar fasciitis: exercises [email or web address] Not available 03/28/2024 12:51:30 plantar fasciiti s education jess Not available 03/28/2024 12:51:30 Reason for Referral None Reported. Results Created Date Observation Date Name Description Value Unit Range Abnormal Flag Note LastModifiedBy Organization Detail LastModifiedTime 03/28/19 25 XR, foot, 3 or more view No observ ation record ed. [email or web address] [facility] [place] [address], [place], [address], 03/28/2024 12:51:32 04/05/1902/06/2024 XR, foot, 3 or more view No observ ation record ed. [email or web address] Not Available 2024 18:15:01 Result Notes None recorded. Problems Name Problem SNOMED Code Status Onset Date Resolution Date Notes Provider Name and Address Organization Details Recorded Time Pain in elbow 55753549 Active Not Available [facility] 18:52:50 Pain of left heel 5349633714993 109 Active 2024 Alonzo Hua DPM [address], [place], [address] , [employer] 12:50:54 Plantar fasciitis of left foot 7424944038076 9101 Active 2024 Alonzo Hua DPM [address], [address], [place], [address] , [employer] 12:50:58 Problem Notes None recorded. Procedures Surgical History Date Name Laterality Status Provider Name and Address Organization Details Recorded Time Plantar Fascia Injection Left Foot completed Alonzo Hua DPM [address], [address], [place], [address], [employer] 03/28/2024 12:51:56 Imaging Results Imaging Date Name Status [facility]Modified by [facility] Details LastModified Time 03/28/2024 XR, foot, 3 or more view completed jess [facility] [place] [address], [place], [address], 03/28/2024 12:51:32 02/06/2024 XR, foot, 3 or more view completed [email or web address] Information not available 04/05/2024 18:15:01 Procedure Notes None recorded. Medical Equipment None Reported. Allergies No known drug allergies Medications Name Sig Start Date Stop Date Status Note LastModified by Organization Details LastModified Time fluoxetine 40 mg capsule TAKE 1 CAPSULE BY MOUTH EVERY DAY active Not Available Not Available No t Available cyclobenzap rine 10 mg tablet active Not Available Not Available Not Available primidone 50 mg tablet 50 MG ORALLY EVERY DAY AT BEDTIME active Not Available Not Available No t Available fluconazole 150 mg tablet 07/24 completed Not Available Not Available Not Available meloxicam 15 mg tablet 07/24 completed Not Available Not Available Not Available ondansetron HCl 4 mg tablet TAKE 1 TABLET BY MOUTH EVERY 6 HOURS NEEDED FOR NAUSEA AND VOMITING active Not Available Not Available No t Available prednisone 20 mg tablet TAKE 3 TABS BY MOUTH ONCE DAILY X 3 DAYS, 2 TABS X 3 DAYS, 1 TAB X 3 DAYS, 1/2 TAB X 4 DAYS active Not Available Not Available No t Available clonazepam 1 mg tablet 07/24 completed Not Available Not Available Not Available phentermine 37.5 mg tablet 37.5 MG ORALLY DAILY MUST ADMINISTE R 30 MINUTES BEFORE OR 1-2 HOURS AFTER BREAKFAST active Not Available Not Available No t Available acyclovir 400 mg tablet TAKE 1 TABLET (400 MG) BY MOUTH THREE TIMES A DAY FOR 5 DAYS NEEDED active Not Available Not Available No t Available levothyroxi ne 75 mcg tablet TAKE 1/2 TABLET BY MOUTH EVERY DAY active Not Available Not Available No t Available oxycodone-a cetaminophe n 5 mg-325 mg tablet 07/24 completed Not Available Not Available Not Available amoxicillin 875 mg tablet active Not Available Not Available Not Available fluoxetine 20 mg tablet TAKE 1 TABLET (20 MG) BY MOUTH DAILY active Not Available Not Available No t Available polymyxin B sulfate 10,000 unit-trimet hoprim 1 mg/mL eye drops 07/24 completed Not Available Not Available Not Available montelukast 10 mg tablet 07/24 completed Not Available Not Available Not Available epinephrine 0.3 mg/0.3 mL injection, auto-inject or 0.3 MG (0.3 ML) INTRAMUSC ULARLY ONCE NEEDED FOR ALLERGIC REACTION active Not Available Not Available No t Available albuterol sulfate HFA 90 mcg/actuati on aerosol inhaler INHALE 2 PUFFS BY MOUTH DIRECTED NEEDED FOR SHORTNESS OF BREATH active Not Available Not Available No t Available fluticasone propionate 50 mcg/actuati on nasal spray,suspe nsion 07/24 completed Not Available Not Available Not Available naproxen 500 mg tablet 07/24 completed Not Available Not Available Not Available amoxicillin 875 mg-potassiu m clavulanate 125 mg tablet 07/24 completed Not Available Not Available Not Available escitalopra m 10 mg tablet 07/24 completed Not Available Not Available Not Available escitalopra m 20 mg tablet 07/24 completed Not Available Not Available Not Available bupropion HCl XL 300 mg 24 hr tablet, extended release TAKE 1 TABLET BY MOUTH EVERY DAY IN THE MORNING active Not Available Not Available No t Available Dulera 200 mcg-5 mcg/actuati on HFA aerosol inhaler INHALE 2 PUFFS TWICE A DAY active Not Available Not Available No t Available Vitals Date Recorded Body height Body mass index (BMI) Body weight Heart rate Respiratory rate Body temperature Oxygen saturation Oxygen saturation in Arterial blood by Pulse oximetry Systolic blood pressure Diastolic blood pressure Provider Name and Address Organization Details Last Updated DateTime 170.18 cm 34.5 kg/m2 19006.3 2 g 72 /min 14 /min 97.6 [degF] 97 % 97 % 120 mm[Hg] 80 mm[Hg] Haley MCCLENDON [facility] 12:03:04 Social History None recorded. Functional Status None recorded. Mental Status None recorded. Family History Relationship Description Onset Age of this Age Resolved Age Notes LastModified by Organization Details LastModified Time Maternal Grandfather Heart disease [email or web address] Not available 03/19 12:04:43 Mother Heart disease Diabet ic Not available 03/28/2024 12:05:05 Medical History Condition Response THYROID DISEASE Y Gynecological HistoryNo gynecological history recorded. Obstetrics History GPAL:G 0 P 0 0 0 0 Past Encounters Encounter ID Performer Location Encounter Start Date Encounter Closed Date Diagnosis/Indication Diagnosis SNOMED-CT Code Diagnosis ICD10 Code Diagnosis Note [id number] Alonzo Hua DPM [facility] [place] [address] [place] [address] 03/28/2024 11:44:19 04/15/2024 13:31:05 Pain of left heel 9989875596 178752 M79.672 as below Plantar fa sciitis of left foot 6027744986 2699381 M72.2 no strenuous activities Recommend supportive shoe gear and Powerstep insolesRic e therapyFol low-up in 1 month Health Concerns Section Related Observation LastModified by Organization Detai ls LastModified Time None Recorded Concern Status LastModified by Organization Details LastModified Time None Recorded Advance Directives Directive None Recorded Payers Encounter Date Sequence Insurance Name Policy Number Policy Malhotra Covered Member ID Malhotra Member ID Guarantor Name 03/28/2024 1 [facility] (MEDICAID REPLACEMENT - HMO) Kaya Quintero [id number] Kaya Quintero Notes Date Note Type Note Provider Name and Address Organization Details Recorded Time 03/28/2024 text/html . Patient is a 43-year-old female she presents to the office with complaints pain to her left heel. 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 Patient states she has tried different shoe gear but has not had much success with alleviation of pain. Patient denies any open wounds or infection to the area. Patient denies any other complaints. Alonzo Hua DPM [address] [facility] [address], [place], [address], [place] [facility] [email or web address] 04/11/2024 09:24:52 OBGyn Episode No OBEpisode recorded.
--- OUTSIDE RECORDS SUMMARY | 2024-04-30 08:41 | XMS_ITS | Continuity of Care Document ---
Author Organization [facility] [place] [address] [place] [address] Phone Care Team Providers Care Career Transition Specialist Name Role Phone Uribe OD, Bang Unavailable Unavailable Procedures Procedure Date Contact Lens Check Eye Exam & Treatment Contact Lens Hydrophilic, Spherical Medical Tax Contact Lens Fit, Med Superv, Level 4 Se Eye Exam, New Patient Advance Directives Directive Yes / No Effective Date File Name No Information Encounters Encounter Description Practice Location Reason(s) For Visit Diagnoses Date Provider Providers Copied on Encounter [facility], [address] [place] [address] [address], [place], [place], [id number], tel:[phone] [facility] No Information 7-201 0 Uribe OD Bang. [address], [place], [place], [facility] [place], [place]. tel:[phone] [facility], [address], [place], [place], [id number], [place] tel:[phone] [facility] No Information Oct- 0-201 0 Uribe OD Bang. [address], [address], [place], [address], [place]. tel:[phone] [facility], [address] [place] [address] [address], [place], [place], [address], [place] tel:[phone] [facility] No Information [address] Ashwin Bust[address]. [address] [facility] [address], [place], [address], [place]. tel:[phone] Family History Family Member Type Diagnosis Age [...]
[2024-04-30 08:42] VITALS: BP 126/69; PULSE 87; RESP 18; TEMP 36.2; O2SAT 98
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
== END 2024-04-30 10:11 | disposition home or self-care (01) ==
PROVIDERS: Emergency Provider Registered Nurse; PCP Family Medicine Adolescent Medicine
DX: M54.50 Low back pain, unspecified (principal); M51.379 Other intervertebral disc degeneration, lumbosacral region without mention of lumbar back pain or lower extremity pain; E03.9 Hypothyroidism, unspecified; J45.909 Unspecified asthma, uncomplicated; E66.9 Obesity, unspecified
CPT/HCPCS: 72100; 99213; G0463

== ENCOUNTER 2024-10-28 14:45 | Outpatient (RCR) | payer OTHER, SELFPAY ==
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
--- NOTE | 2024-08-01 16:34 | OPREHPOC ---
Outpatient Therapy Plan of Care This is a Multidisciplinary Plan of Care that may contain components documented by all disciplines (PT, OT, and ST.) PT Problem 1 PT Problem #1 Knowledge Deficit PT Goal 1 Goal / Goal Update Pt will be independent in HEP Pt will verbalize understanding of diagnosis and prognosis Target Visit 8 PT Problem 2 PT Problem #2 Pain PT Goal 1 Goal / Goal Update Pt will report lowest pain rating at 0/10 to show improvement in overall discomfort Target Visit 8 PT Goal 2 Goal / Goal Update Pt will report greatest pain level at 3/10 or less to improve ADLs and activities Target Visit 10 PT Problem 3 PT Problem #3 Impaired Strength PT Goal 1 Goal / Goal Update Pt gluteus medius and quads RLE strength will equal LLE Target Visit 8 PT Goal 2 Goal / Goal Update Pt will demonstrates gluteal strength of the medius and gricelda Target Visit 16
--- NOTE | 2024-08-17 15:24 | PCPTNOTE ---
Pt canceled physical therapy appointment this date due to having a possible UTI.
--- NOTE | 2024-09-15 11:28 | PTOPPROG ---
Assessment and note entered by Shaina Viera, PT Evaluation Information Assessment Status Progress ICD-10 Condition Codes (PT) Pain in low back M54.50,Radiculopathy, lumbar region M54.16,Weakness R53.1 Onset 02/19/2024 Subjective Information Reports back pain depends on what she has to do. If she hast to cut grass, get on the ground and pull weeds or scrubbing bath tubs increases pain. Bending and lifting is what hurts the most. Reports is going to try to go hiking this weekend. Feels like she is still weak, but doesn't know if part is age or decreased activity due to pain. Is still going to bed really early because she is too tired. Can move her neck better, used to be unable to drive but now is all the lower body. Reports has also increased weight to 235 lbs Feels 20% improved overall. Two back injections since starting but only helps for 24 hours. Is on the fence about surgery. Does have less area of pain, no longer has sciatica Assessment PT Clinical Summary Pt has attended therapy consistently for her low back pain and radiculopathy. She reports today the pain into her leg is improved, but her back reports are worse than initially suggesting centralization of symptoms. 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 Discussed with patient utilizing resources such as having her teenage children assist, modifications of positions with activities to reduce strain on the lumbar spine, and prioritize importance for energy conservation while she is addressing the underlying issue. Pt is progressing in multiple areas, but would benefit from continued therapy to continue progression in strength and stability, and educating on appropriate modifications, energy conservation to meet patient goals and improve functionality with less pain. Plan of Care Interventions Electrical Stimulation,Hot Pack/Cold Pack,Manual Therapy,Mechanical Traction,Neuro Re-education, Patient/Caregiver Education,Therapeutic Activities ,Therapeutic Exercise,Self-Care/Home Management, Ultrasound,Other Other Interventions Taping, Bracing PT Services Indicated Yes Treatment Frequency and 1-2x weekly x 10 visits Duration These treatments will address the objective and functional deficits as defined above. The patient will be advanced safely and appropriately in order for the patient to progress towards his/her prior level of function. Additional exercises will be introduced and as well as a comprehensive home exercise program upon discharge, if needed, ?to ensure carryover of functional gains achieved in the clinic. This treatment plan has been reviewed and agreement upon by the patient.
--- NOTE | 2024-10-07 11:07 | PCPTNOTE ---
Pt called service desk lead to cancel her therapy appointment for today due to puking all night and not feeling well after having an injection done.
--- NOTE | 2024-10-20 10:32 | PTOPPROG ---
Assessment and note entered by Shaina Viera, PT Evaluation Information Assessment Status Progress ICD-10 Condition Codes (PT) Pain in low back M54.50,Radiculopathy, lumbar region M54.16,Weakness R53.1 Onset 02/19/2024 Subjective Information Pt reports had do to a lot of sitting on bleachers and was going a lot this weekend and did well with this. Pt recently went to pain management for a shot, and noted it hurt more than normal but was able to leave. Started having symptoms that night wiht increased pain, nausea, and vomiting. Had to cancel that appt. Then a few days later came to therapy and had to leave early because of symptoms and pain, called doctor who told her to take muscle relaxers and she did this and rested. Went back for f/u on 10/19/2024 and was told they had given her the wrong injection. When the medication wore off se feels better but not like she did before. Was able to do elliptical total of 45 min but with rest breaks. Feels like therapy was working and not feels like it set her back. Was getting to being able to cut grass and do her work functions. Assessment PT Clinical Summary Pt has attended therapy consistently for her back pain and radicular symptoms. She had been making significant progress in pain ratings and reported function. She went to pain management for injections on 10/06/2024, and had a reaction causing nausea, vomiting, and increased pain. Follow up with this office 10/19/2024 she reports they informed her she was given the wrong injection. She is recovering from this though this flare up has set her back with her pain and function. Pt will benefit from continued therapy to continue strengthening and improving function with less pain. Plan of Care Interventions Electrical Stimulation,Hot Pack/Cold Pack,Manual Therapy,Mechanical Traction,Neuro Re-education, Patient/Caregiver Education,Therapeutic Activities ,Therapeutic Exercise,Self-Care/Home Management, Ultrasound,Other Other Interventions Taping, Bracing PT Services Indicated Yes Treatment Frequency and 2x weekly x 10 weeks Duration These treatments will address the objective and functional deficits as defined above. The patient will be advanced safely and appropriately in order for the patient to progress towards his/her prior level of function. Additional exercises will be introduced and as well as a comprehensive home exercise program upon discharge, if needed, ?to ensure carryover of functional gains achieved in the clinic. This treatment plan has been reviewed and agreement upon by the patient.
--- NOTE | 2024-10-26 16:21 | PCPTNOTE ---
Pt called to cx physical therapy appointment this date due to having a sick child.
== END 2024-10-30 23:59 | disposition home or self-care (01) ==
LOC: ANHHIPT 14:45
PROVIDERS: PCP Family Medicine Adolescent Medicine; Visit Provider Nurse Practitioner Family
DX: M54.50 Low back pain, unspecified (principal)
CPT/HCPCS: 97012; 97014; 97110; 97112; 97140; 97161; 97530; 97750; G0283

== ENCOUNTER 2024-11-04 10:31 | Emergency (ER) | payer OTHER, SELFPAY ==
--- NOTE | ~2024-11-04 | CT_ITS ---
CT ABDOMEN AND PELVIS WITHOUT CONTRAST Clinical History: flank pain r/o stone Comparison: None Technique: Unenhanced axial images lung bases to symphysis pubis Coronal, sagittal reformats CT images acquired with automatic exposure control for dose reduction DLP: 621 mGy-cm Findings: Without intravenous contrast, sensitivity for detecting visceral parenchymal abnormalities decreased. Lung bases: Clear. Visualized heart and pericardium: Unremarkable. Liver: Unremarkable. Gallbladder: Unremarkable. Spleen: Unremarkable. Pancreas: Unremarkable. Adrenal glands: Unremarkable. Kidneys: Right kidney- No hydronephrosis. 10 mm stone. A few tiny stones. Left kidney- No hydronephrosis. A few small stones. Distal esophagus/stomach: Unremarkable. Small bowel loops: Normal caliber and wall thickness. Colon: Normal caliber and wall thickness. Normal RLQ appendix. Nodes: No enlarged nodes. Peritoneum: No ascites. No free intraperitoneal air. Urinary bladder: Unremarkable. Uterus: Removed. Adnexa: No masses. Cystic focus left side Bones: No acute bony abnormality. Soft tissues: Unremarkable. Unopacified abdominal aorta: No aneurysmal dilatation. IMPRESSION: 1. Bilateral nephrolithiasis. No hydronephrosis. 2. No other acute abnormality. Reviewed, dictated and finalized at location R.
[2024-11-04 11:13] VITALS: BP 123/77; PULSE 85; RESP 16; TEMP 36.6; O2SAT 98
[2024-11-04 14:22] LABS: Add Urine Microscopic? YES; Appearance Urine Cloudy (Clear); Glucose Urine UA Trace mg/dL (Negative); Leukocyte Esterase Ur Negative LEU/UL (Negative); Need Manual Microscopic Reviewed; Nitrate Urine Negative (Negative); Non Pathogenic Casts 0-2; Specific Grav Ur 1.024 (1.001-1.035)
--- NOTE | 2024-11-04 14:39 | ED.BACK ---
HPI - Back Pain/Injury General Chief Complaint: Back Pain/Injury Stated Complaint: right side pain-chronic pain Time Seen by Provider: 11/04/24 12:14 Source: patient Mode of arrival: ambulatory Limitations: no limitations History of Present Illness HPI Narrative: Bri is a 43-year-old female patient presenting to the ER today with complaints of chronic right-sided back pain since February. She reports that her back pain has felt different than what she has had felt before. States over the last few days she has had pain that has come and goes. States it is in the right flank area. Rates it at 3/10 currently and it is a dull ache. She has not noticed any blood in her urine. Denies any history of kidney stones. Does have nausea at the time when she has pain however she is not reporting any nausea vomiting at this time. Related Data Home Medications ?Medication ?Instructions ?Recorded ?Confirmed ?Last Taken ?Type levothyroxine 175 mcg tablet 87.5 mcg PO DAILY 07/22/23 05/19/24 Unknown History Allergies Allergy/AdvReac Type Severity Reaction Status Date / Time cat dander Allergy Severe Difficulty Verified 11/04/24 11:58 Breathing dog dander Allergy Mild Other Verified 11/04/24 11:58 grape Allergy Anaphylaxis Verified 11/04/24 11:58 pomegranate Allergy Anaphylaxis Verified 11/04/24 11:58 green been AdvReac Severe Shock Uncoded 08/25/24 13:48 Review of Systems Review of Systems: Pertinent positives per HPI. Patient denies any fever, chills, rash, headache, visual changes, dizziness, cough, shortness of breath, chest pain, palpitations, nausea, vomiting, diarrhea, constipation, abdominal pain, or any urinary issues. [facility] Past Medical History Medical History Obesity (BMI 30-39.9) Generalized anxiety disorder Hypothyroid Menorrhagia Irregular bleeding S/p left hip fracture (normal spontaneous vaginal delivery) x 2 Anxiety Asthma Surgical History Surgical History History of endometrial ablation H/O lumpectomy Rt breast lumpectomy S/P tubal ligation Family History Family History Grandparent Breast cancer Acute myocardial infarction Cerebrovascular accident Diabetes mellitus Grandparent Family history of malignant neoplasm of breast Breast cancer Father Asthma Mother Heart disease Stents placed Diabetes mellitus Hypertension Other Depression Social History Social History Smoking status: Never smoker Second hand tobacco smoke exposure: No Alcohol intake: current Drinks per week: 1 Alcohol use details: once weekly Substance use: never Substance use type: does not use Lack of Transportation: No Lack of Food: Never True Current Housing: I Have Housing Concerned About Future Housing: No Difficulty Paying Gas/Electric Bills: No Difficulty Paying for Meds: No Currently Unemployed: No Education: High School Diploma/GED Difficulty w/ Childcare or Family Care: No Living arrangements: with family Occupation/Education: unemployed Gender identity (if verbalized by the patient): Female Sexual Orientation (if Verbalized by the Patient): Straight or Heterosexual Spiritual care concerns: No Agree to blood products: Yes Comments At the time of my signature, I reviewed and agree with the nursing past medical, surgical, social, and family history. There is no relevant family history pertinent to the patient complaint. Exam Narrative: General: Well-developed, well nourished, in no apparent distress. Head: Normocephalic, atraumatic. Cardio: Regular rate and rhythm, s1 and s2 normal, no murmur appreciated. Resp: Clear to auscultation bilaterally, no rhonchi, rales, wheezing or rubs. Abdomen: Soft, pliable, bowel sounds present in all quadrants, non-tender to palpation, no organomegly, right CVAT tenderness. Musculoskeletal: No deformity, tender to palpation over the right flank, grossly normal range of motion, muscle strength strong and equal in BLE. SLT negative, patellar reflexes 2/4 bilaterally, negative foot drop, normal gait and station Course Course Emergency Course: Portions of this record may have been created with voice recognition software. Vital Signs Vital signs: Vital Signs Temperature 36.6 C 11/04/24 11:13 Pulse Rate 85 11/04/24 11:13 Respiratory Rate 16 11/04/24 11:13 Blood Pressure 123/77 11/04/24 11:13 Pulse Oximetry 98 11/04/24 11:13 Oxygen Delivery Room Air 11/04/24 11:13 Temperature 36.6 C 11/04/24 11:13 Pulse Rate 85 11/04/24 11:13 Respiratory Rate 16 11/04/24 11:13 Blood Pressure 123/77 11/04/24 11:13 Pulse Oximetry 98 11/04/24 11:13 Oxygen Delivery Room Air 11/04/24 11:13 Vital signs reviewed MDM - Back Pain/Injury MDM Narrative Medical decision making narrative: At the time of visit patient is resting comfortably on the exam table. Patient appears to be nontoxic. Complaints of chronic right-sided back pain since February. She reports that her back pain has felt different than what she has had felt before. States over the last few days she has had pain that has come and goes. States it is in the right flank area. Rates it at 3/10 currently and it is a dull ache. She has not noticed any blood in her urine. Denies any history of kidney stones. Does have nausea at the time when she has pain however she is not reporting any nausea vomiting at this time. Urinalysis shows cloudy urine appearance, trace of glucose, trace of ketones, red blood cells 6-10, your to acid present, and 1+ urine bacteria. Diagnostics: CTA abdomen pelvis without contrast was ordered. CT shows bilateral kidney stones without obstruction. No hydro nephrosis Plan: I suspect patient has acute flank pain with bilateral kidney stones. No sign of hydronephrosis or obstruction. Follow-up with urology as discussed. Follow-up with PCP. May take Tylenol/ibuprofen as needed for pain Supportive measures were discussed with the patient and they voiced understanding discharge instructions and agrees to treatment plan. Return precautions reviewed Differential Diagnosis Differential diagnosis: Likely sciatica, strain of lumbar region, renal colic, pyelonephritis and other (Kidney stones, ureteral stone) Lab Data Labs: Lab Results 11/04/24 Range/Units 13:58 Urine Color Yellow (Yellow) Urine Appearance Cloudy H (Clear) Urine pH 6.0 (5.0-9.0) Ur Specific [place] 1.024 (1.001-1.035) Urine Protein Trace (Negative) mg/dL Urine Glucose (UA) Trace H (Negative) mg/dL Urine Ketones Trace H (Negative) mg/dL Ur Blood (Man) Trace (Negative) Urine Nitrate Negative (Negative) Urine Bilirubin Negative (Negative) Urine Urobilinogen 0.2 (<2.0) mg/dL Add Ur Microanalysis Reviewed Leukocyte Esterase Rfl Negative (Negative) MALISSA/UL Urine RBC 6-10 H (0-2) /hpf Urine WBC 0-5 (0-3) /hpf Ur Squamous Epith Cells Moderate (Few) /hpf Uric Acid Crystals Present H (None) /hpf Urine Bacteria 1+ H /hpf Urine Casts 0-2 Imaging Data Radiologist's impression: ITS Impressions Abdomen/Pelvis CT 11/04/24 13:57 IMPRESSION: 1. Bilateral nephrolithiasis. No hydronephrosis. 2. No other acute abnormality. Discharge Plan Discharge Clinical Impression: Acute flank pain, Bilateral kidney stones Patient Disposition: Home Condition: Stable Instructions: Antibiotic Form, Kidney Stones (ED), Flank Pain (ED) Patient Language: Wolof Prescriptions: No Action Dulera 200-5 mcg/actuation HFA aerosol inhaler 2 puff inhalation BID Qty: 13 8RF cyclobenzaprine 10 mg tablet 10 mg PO TID PRN (Reason: muscle spasm) Qty: 30 0RF levothyroxine 175 mcg tablet 87.5 mcg PO DAILY epinephrine [EpiPen] 0.3 mg/0.3 mL auto-injector 0.3 mg IM ONCE PRN (Reason: Allergic Reaction) Qty: 2 1RF albuterol sulfate 90 mcg/actuation HFA aerosol inhaler See Rx Instructions .ROUTE .COMPLEX Qty: 8.5 4RF Dose Instruction: INHALE 2 PUFFS BY MOUTH DIRECTED NEEDED FOR SHORTNESS OF BREATH Rx Instructions: INHALE 2 PUFFS BY MOUTH DIRECTED NEEDED FOR SHORTNESS OF BREATH bupropion HCl 300 mg tablet extended release 24 hr See Rx Instructions .ROUTE .COMPLEX Qty: 90 2RF Dose Instruction: TAKE 1 TABLET BY MOUTH EVERY DAY IN THE MORNING Rx Instructions: TAKE 1 TABLET BY MOUTH EVERY DAY IN THE MORNING fluoxetine 40 mg capsule 40 mg PO DAILY Qty: 90 3RF Follow-up/Referrals: Ankit Mota MD [Physician, Urology] - 1 Week Clinical Impression: Acute flank pain; Bilateral kidney stones Sharlene Hay APRN [Primary Care Provider, [facility]] Time of Disposition: 14:47 Quality NIHSS Nursing Documentation ED NIHSS nursing documentation: reviewed/agree
== END 2024-11-04 15:09 | disposition home or self-care (01) ==
PROVIDERS: Emergency Provider Nurse Practitioner Family; PCP Nurse Practitioner Family
DX: R10.30 Lower abdominal pain, unspecified (principal); N20.0 Calculus of kidney
CPT/HCPCS: 74176; 81001; 99284

== ENCOUNTER 2024-11-11 14:00 | Outpatient (RCR) | payer OTHER, SELFPAY ==
--- NOTE | 2024-11-15 13:29 | PTOPPROG ---
Assessment and note entered by Shaina Viera, PT Evaluation Information Assessment Status Progress - Pt Not Present ICD-10 Condition Codes (PT) Pain in low back M54.50,Radiculopathy, lumbar region M54.16,Weakness R53.1 Onset 02/19/2024 Assessment PT Clinical Summary Since last reevaluation pt has noted pain in clinic from 0-5/10. She had an instance which she went to the ER for pain and was found to have kidney stones and also an ovarian tumor. She shows improved stability and strength functionally with her ability to perform plank exercises and quadruped exercises in clinic. She reports improved ability to participate in her job required activities with less pain and soreness, has been able to participate in family activities with minimal pain such as supporting her children in their school athletics and beginning to be outside taking small hikes again with them. She has made exceptional progress considering the extent of damage in her spine, and that she had been requiring pain management but has far less pain than previously. Pt will benefit from continued therapy to continue strengthening, focus on high level functional activities, and provide all the knowledge and tools for self-maintenance at completion of therapy Plan of Care Interventions Electrical Stimulation,Hot Pack/Cold Pack,Manual Therapy,Mechanical Traction,Neuro Re-education, Patient/Caregiver Education,Therapeutic Activities ,Therapeutic Exercise,Self-Care/Home Management, Ultrasound,Other Other Interventions Taping, Bracing PT Services Indicated Yes Treatment Frequency and 2x weekly x 6 visits Duration These treatments will address the objective and functional deficits as defined above. The patient will be advanced safely and appropriately in order for the patient to progress towards his/her prior level of function. Additional exercises will be introduced and as well as a comprehensive home exercise program upon discharge, if needed, ?to ensure carryover of functional gains achieved in the clinic. This treatment plan has been reviewed and agreement upon by the patient.
--- NOTE | 2024-11-29 10:20 | PTOPDC ---
Assessment and note entered by Shaina Viera, PT Evaluation Information Assessment Status Discharge - Pt Not Present ICD-10 Condition Codes (PT) Pain in low back M54.50,Radiculopathy, lumbar region M54.16,Weakness R53.1 Onset 02/19/2024 Assessment PT Clinical Summary Unfortunately due to insurance denial, patient is unable to continue therapy POC at this time. She has been informed of this and reports as she would like to continue therapy as she feels she was continuing to improve in pain and functional ability. Thus patient is being discharged due to insurance issues. She may be able to continue therapy with a new prescription if insurance is agreeable. Plan of Care PT Services Indicated Yes
== END 2024-11-29 10:36 | disposition home or self-care (01) ==
LOC: ANHHIPT 14:00
PROVIDERS: PCP Nurse Practitioner Family; Visit Provider Nurse Practitioner Family
DX: M54.50 Low back pain, unspecified (principal)
CPT/HCPCS: 97110; 97140

== ENCOUNTER 2024-11-14 09:31 | Outpatient (CLI) | payer OTHER, SELFPAY ==
--- OUTSIDE RECORDS SUMMARY | 2009-11-02 03:30 | XMS_ITS | Continuity of Care Document ---
Author Organization [facility] Address [address] [place] [address] Phone Care Team Providers Care Integration Software Developer Name Role Phone Uribe OD, Bang Unavailable Unavailable Procedures Procedure Date Contact Lens Check Eye Exam & Treatment Contact Lens Hydrophilic, Spherical Medical Tax Contact Lens Fit, Med Superv, Level 4 Se Eye Exam, New Patient Advance Directives Directive Yes / No Effective Date File Name No Information Encounters Encounter Description Practice Location Reason(s) For Visit Diagnoses Date Provider Providers Copied on Encounter [facility], [address] [place] [address] [address], [place], [place], [id number], tel:[phone] [facility] No Information 7-201 0 Uribe OD Bang. [address], [place], [place], [facility], [place]. tel:[phone] [facility], [address], [place], [place], [id number], [place] tel:[phone] [facility] No Information Oct- 0-201 0 Uribe OD Bang. [address], [address], [place], [address], [place]. tel:[phone] [facility], [id number] [place] [address] [address], [place], [place], [id number], [place] tel:[phone] [facility] No Information [address]. [address] [facility] [address], [address], [place]. tel:[phone] Family History Family Member Type Diagnosis Age At Onset No Information Payers Payer name Insurance type Covered republican ID Authoriza tion(s) No Information Social History Type Description Quantity Date Captured Comments Sex Female Smoking Status No Information Chief Complaint And Reason For Visit No Information Reason For Referral Reason For Referral No Information History Of Present Illness Encounter Date Complaint History Of Prese nt Illness No Information Functional Status Date Functional Assessmen t No Information Instructions Date Instruction Additional Infor mation No Information Assessments Type Assessment Date No Information Patient Care Teams Name Effective Dates (start - stop) Status Members No Information
== END 2024-11-14 09:32 | disposition home or self-care (01) ==
LOC: ANHSURGERY 09:35
PROVIDERS: PCP Nurse Practitioner Family; Visit Provider Obstetrics & Gynecology
DX: N83.209 Unspecified ovarian cyst, unspecified side (principal)
CPT/HCPCS: 36415; 86850; 86900; 86901

== ENCOUNTER 2024-11-18 03:10 | Day surgery (SDC) | payer OTHER, SELFPAY ==
[2024-11-09 17:58] VITALS: BMI 37.5
--- NOTE | 2024-11-09 18:26 | PC.NURSE ---
[facility] has started construction of its new state of the art ER which will open Spring 2026. With this, we anticipate parking may be a challenge for some our surgical patients and families. Parking spaces are limited but are available for all Surgical, obstetrics, and ER patients sharing this lot. If you arrive and find you are having a hard time finding a parking space, please note that we understand the challenges, please drive around the hospital and park near Hospital Entrance 1. When you enter this entrance, you can ask a volunteer to direct or take you back to the surgical waiting area to check in. We appreciate everyone?s understanding of these expected challenges while we build for your future. Report to the Outpatient Waiting Room, entrance under the green pavilion located off [address], at 0900 on 11-18-24. Planned Procedure Time: 1100.? Time changes happen often and if your time is changed the preop area will call you the afternoon before. - You and your visitor will be asked to self-screen and do not enter if you have any COVID symptoms. Please call surgeon if you need to reschedule. - A mask is optional within the hospital at this time. Patients may have clear liquids (water, carbonated beverages, clear teas, apple juice) until 3 hours prior to surgery with a maximum of 20 ounces. 0800 - No food from midnight until time of surgery and no smoking, or chewing tobacco (or any form of nicotine). No chewing gum, candy or mints. - Infants may have breast milk until 4 hours before surgery, formula 6 hours prior to surgery. - Children will be allowed to drink immediately following surgery.? If applicable, please bring a bottle or sippy cup to assist with drinking. Juice, water, soda, and popsicles are readily available.? For infants on formula, please bring formula the day of surgery.? Pacifiers are allowed. Take only the following medications with a SIP of water on the morning of surgery: bupropion, fluoxetine, levothyroxine Patient instructed to bring rescue inhaler DOS DO NOT STOP ANY OF YOUR OTHER PRESCRIPTION MEDICATIONS PRIOR TO SURGERY EXCEPT THE FOLLOWING Hold all vitamins and supplements for 3 days per anesthesiologist. 11-15-24 Medications to discontinue per physician: N/A Please no make-up, nail czech, hairspray, perfume, deodorant, or body powder the day of surgery.? No jewelry (including any body piercings) or valuables the day of surgery, leave them at home.? Please take a shower or bath the night before, or the morning of, surgery with an antibacterial soap.? Wear comfortable, loose fitting clothing.? Children are encouraged to wear pajamas. - Jewelry must be removed prior to entering the operating room.? Rings and piercings that are not removed may be cut off. - The hospital will not accept responsibility for valuables.? - Please leave all valuables, including medications, at home the day of surgery. If you are going home after surgery, a licensed class c driver must drive you home.? - NO public transportation without another adult if you receive anesthesia. - We recommend that an adult stay with you for 24 hours following discharge. - We also recommend that you do not drive, make important decision, drink alcoholic beverages, or take any drugs that were not prescribed by your health care provider for at least 24 hours after your discharge time. For Pediatric surgeries, we recommend two adults accompany the child home. Follow any additional instructions given to you from your surgeon. Telephone instructions given to Kaya Quintero and asked if any additional questions and then verbalized understanding. Patient advised to call surgeon office or pre surgery nurse liaison [phone] if any additional questions.
--- NOTE | 2024-11-14 14:09 | PM.IMHP ---
H&P: HPI History of Present Illness Date/Time: 11/14/24 14:09 Chief Complaint: Left-sided pain and ovarian cyst Narrative: 43-year-old female admitted for laparoscopy with left self paying oophorectomy. She has a 7cm ovarian cyst she complains of pain discomfort and dyspareunia status post hysterectomy. It does have a benign look but she would like to proceed laparoscopically and had this removed risks and benefits reviewed in full Review of Systems Review of Systems: Pertinent positives per HPI. Patient denies any fever, chills, rash, headache, visual changes, dizziness, cough, shortness of breath, chest pain, palpitations, nausea, vomiting, diarrhea, constipation, abdominal pain, or any urinary issues. [facility] Past Medical History Medical History Obesity (BMI 30-39.9) Generalized anxiety disorder Hypothyroid Menorrhagia Irregular bleeding S/p left hip fracture (normal spontaneous vaginal delivery) x 2 Anxiety Asthma Surgical History Surgical History History of endometrial ablation H/O lumpectomy Rt breast lumpectomy S/P tubal ligation Family History Family History Grandparent Breast cancer Acute myocardial infarction Cerebrovascular accident Diabetes mellitus Grandparent Family history of malignant neoplasm of breast Breast cancer Father Asthma Mother Heart disease Stents placed Diabetes mellitus Hypertension Other Depression Social History Social History Smoking status: Never smoker Second hand tobacco smoke exposure: No Alcohol intake: current Drinks per week: 1 Alcohol use details: 1-2 times a month maybe Substance use: never Substance use type: does not use Lack of Transportation: No Lack of Food: Never True Current Housing: I Have Housing Concerned About Future Housing: No Difficulty Paying Gas/Electric Bills: No Difficulty Paying for Meds: No Currently Unemployed: No Education: High School Diploma/GED Difficulty w/ Childcare or Family Care: No Living arrangements: with family Occupation/Education: unemployed Gender identity (if verbalized by the patient): Female Sexual Orientation (if Verbalized by the Patient): Straight or Heterosexual Spiritual care concerns: No Agree to blood products: Yes Meds Home Medications and Allergies Home Medications ?Medication ?Instructions ?Recorded ?Confirmed ?Type mometasone-formoterol HFA 200 2 puff inhalation BID #13 grams 06/30/23 11/09/24 Rx mcg-5 mcg/actuation aerosol inhaler (Dulera) levothyroxine 175 mcg tablet 87.5 mcg PO DAILY 07/22/23 11/09/24 History epinephrine 0.3 mg/0.3 mL 0.3 mg (0.3 mL) IM ONCE PRN 09/11/23 11/09/24 Rx injection, auto-injector (EpiPen) Allergic Reaction #2 ea albuterol sulfate 90 mcg/actuation See Rx Instructions .Route 11/23/23 11/09/24 Rx aerosol inhaler .COMPLEX #8.5 ea cyclobenzaprine 10 mg tablet 10 mg PO TID PRN muscle spasm #30 02/25/24 11/09/24 Rx tabs bupropion HCl 300 mg 24 hr tablet, See Rx Instructions .Route 06/23/24 11/09/24 Rx extended release .COMPLEX #90 tabs fluoxetine 40 mg capsule 40 mg PO DAILY #90 caps 07/15/24 11/09/24 Rx Allergies Allergy/AdvReac Type Severity Reaction Status Date / Time cat dander Allergy Severe Difficulty Verified 11/09/24 17:57 Breathing dog dander Allergy Severe Difficulty Verified 11/09/24 17:57 Breathing grape Allergy Anaphylaxis Verified 11/09/24 17:57 pomegranate Allergy Anaphylaxis Verified 11/09/24 17:57 green beans Allergy Severe Anaphylactic Uncoded 11/09/24 17:57 Shock Exam Const: General: cooperative, healthy appearing, comfortable and overweight Orientation/consciousness: oriented to person, oriented to place and oriented to time HENMT: Head: normal to inspection Resp: Effort & Inspection: normal respiratory effort Cardio: Rate: regular rate Rhythm: regular rhythm Heart sounds: S1 normal heart sound present and S2 normal heart sound present GI: Inspection: normal to inspection : External Female Exam: normal external appearance Speculum Exam - Vagina: normal appearance of the vagina Speculum Exam - Cervix: Cervix absent Bimanual exam- vagina & uterus: uterus absent Bimanual Exam- Adnexa, other: Adnexal mass present on the left tender Assessment and Plan Assessment and plan (1) Left ovarian cyst: Code(s): N83.202 - Unspecified ovarian cyst, left side Status: Acute Plan Proceed with laparoscopic left salpingo-oophorectomy
[2024-11-18] VITALS (8 sets, daily range): BP systolic 109–130; BP diastolic 59–87; PULSE 66–92; RESP 11–20; TEMP 36.5–36.6; O2SAT 96–100
--- OUTSIDE RECORDS SUMMARY | 2024-11-18 03:14 | XMS_ITS | Data Portability ---
Author Organization [place] [facility] [employer] Outcome Referrals, Main Office Address [address] [place] [address] Care Team Providers Care Business Unit Leader Name Role Phone MULUGETA OCHOA Primary Care Provider MULUGETA OCHOA Referring Provider Assessment Encounter Date Assessment Date Assessment LastModified by Organization Details LastModified Time 03/28/2024 03/28/2024 This note is dictated and transcribed by [employer]. Pharmacist Technician variances may occur. Despite proofreading, typographical errors may occur. Occasional wrong-word or 'amzjq-t-pkur' substitutions may have occurred due to the inherent limitations of voice recording. Read the chart carefully and recognize, using context, where substitutions have occurred. Not available 03/28/2024 12:50:50 05/09/2024 05/09/2024 This note is dictated and transcribed by [employer]. Pharmacist Technician variances may occur. Despite proofreading, typographical errors may occur. Occasional wrong-word or 'duklb-r-flsw' substitutions may have occurred due to the inherent limitations of voice recording. Read the chart carefully and recognize, using context, where substitutions have occurred. Not available 05/09/2024 10:32:19 06/13/2024 06/13/2024 This note is dictated and transcribed by [employer]. Pharmacist Technician variances may occur. Despite proofreading, typographical errors may occur. Occasional wrong-word or 'ptqeu-p-pgzi' substitutions may have occurred due to the inherent limitations of voice recording. Read the chart carefully and recognize, using context, where substitutions have occurred. Not available 06/13/2024 12:11:24 07/18/2024 07/18/2024 This note is dictated and transcribed by [employer]. Pharmacist Technician variances may occur. Despite proofreading, typographical errors may occur. Occasional wrong-word or 'igxvt-r-xizu' substitutions may have occurred due to the inherent limitations of voice recording. Read the chart carefully and recognize, using context, where substitutions have occurred. [email or web address] Not available 07/18/2024 12:22:35 09/12/2024 09/12/2024 This note is dictated and transcribed by [employer]. Pharmacist Technician variances may occur. Despite proofreading, typographical errors may occur. Occasional wrong-word or 'vpujd-p-lbmq' substitutions may have occurred due to the inherent limitations of voice recording. Read the chart carefully and recognize, using context, where substitutions have occurred. [email or web address] Not available 09/12/2024 12:37:37 Plan of Treatment Reminders Order Date Submit Date Provider Last Modified By Organization Details Last Modified Time Details Appointments None recorded. Lab None recorded. Referral None recorded. Procedures None recorded. Surgeries None recorded. Imaging XR, foot, 3 or more view 2024 025 marlon [email or web address] [facility] [place], [facility] [facility] [address], [place], [address], 5 12:51:32 Medication Orders diclofenac sodium 75 mg tablet,aida yed release [address] [id number], [address] [place], [address], 10:50:50 Patient TargetsNo targets recorded. Patient Instructions Encounter Date Encounter Id Patient Instructions Last Modified By Organization Details Last Modified Time 03/28/2024 [id number] plantar fasciitis: exercises jess Not available 03/28/2024 12:51:30 plantar fasciiti s education jess Not available 03/28/2024 12:51:30 Reason for Referral None Reported. Results Created Date Observation Date Name Description Value Unit Range Abnormal Flag Note LastModifiedBy Organization Detail LastModifiedTime 03/28/19 25 XR, foot, 3 or more view No observ ation record ed. [email or web address] [facility] [place] [address], [place], [address], 03/28/2024 12:51:32 04/05/19 25 02/06/2024 XR, foot, 3 or more view No observ ation record ed. [email or web address] Not Available 2024 18:15:01 Result Notes None recorded. Problems Name Problem SNOMED Code Status Onset Date Resolution Date Notes Provider Name and Address Organization Details Recorded Time Pain of elbow region 64891427 Active Not Available [facility] 3 18:52:50 Pain of left heel 8655061131147 109 Active 2024 Alonzo Hua DPM [address], [place], [address] , [employer] 5 12:50:54 Plantar fasciitis of left foot 6270601403301 9101 Active 2024 Alonzo Hua DPM [address], [address], [place], [address] , [employer] 5 12:50:58 Problem Notes None recorded. Procedures Surgical History Date Name Laterality Status Provider Name and Address Organization Details Recorded Time 5 Plantar Fascia Injection Left Foot completed Alonzo Hua DPM [address], [address], [place], [address], [employer] 06/13/2024 12:10:58 5 Plantar Fascia Injection Left Foot completed Alonzo Hua DPM [address], [place], [address], [employer] 03/28/2024 12:51:56 Imaging Results None recorded. Procedure Notes None recorded. Medical Equipment None Reported. Allergies No known drug allergies Medications Name Sig Start Date Stop Date Status Note LastModified by Organization Details LastModified Time fluoxetine 40 mg capsule TAKE 1 CAPSULE BY MOUTH ONCE DAILY active Not Available Not Available No t Available cyclobenzap rine 10 mg tablet active Not Available Not Available Not Available primidone 50 mg tablet 50 MG ORALLY EVERY DAY AT BEDTIME active Not Available Not Available No t Available diclofenac 3 % topical gel APPLY TO THE AFFECTED AREA(S) TWO OR THREE TIMES DAILY NEEDED FOR PAIN AND FOR INFLAMATI ON active Not Available Not Available No t [...] 3 DAYS, 1/2 TAB X 4 DAYS 05/09 completed Not Available Not Available Not Available clonazepam 1 mg tablet 07/24 completed [...] Not Available Not Available No t Available lidocaine 5 % topical patch APPLY 1 PATCH TO AFFECTED AREA 12 HOURS ON AND 12 HOURS OFF EVERY DAY NEEDED FOR PAIN active Not Available Not Available No t Available polymyxin B sulfate 10,000 unit-trimet hoprim 1 mg/mL eye drops 07/24 completed Not Available Not Available Not Available diclofenac sodium 75 mg tablet,aida yed release TAKE 1 TABLET BY MOUTH TWICE A DAY DIRECTED active Not Available Not Available No t Available montelukast 10 mg tablet 07/24 completed [...] in Arterial blood by Pulse oximetry Systolic And Diastolic Provider Name and Address Organization Details Last Updated DateTime 170.18 cm 34.5 kg/m2 82814.3 2 g 72 /min 14 /min 97.6 [degF] 97 % 97 % 120/80 mm[Hg] Haley Lock [place] [employer] [facility] [employer] 12:03:04 Date Recorded Heart rate Systolic And Diastolic Provider Name and Address Organization Details Last Updated DateTime 05/09/2024 82 /min 109/83 mm[Hg] Fadia Carter [employer] 05/09/2024 10:34:49 Date Recorded Body height Body mass index (BMI) Body weight Provider Name and Address Organization Details Last Updated DateTime 05/09/2024 170.18 cm 34.5 kg/m2 83817.32 g Abby Valencia [employer] [facility] 05/09/2024 10:27:40 Date Recorded Body height Body mass index (BMI) Body weight Heart rate Respiratory rate Oxygen saturation Oxygen saturation in Arterial blood by Pulse oximetry Systolic And Diastolic Provider Name and Address Organization Details Last Updated DateTime 5 170.18 cm 34.5 kg/m2 72133.3 2 g 83 /min 14 /min 99 % 99 % 117/80 mm[Hg] Abby Valencia [facility] [employer] [facility] 5 11:24:19 Date Recorded Body height Body mass index (BMI) Body weight Heart rate Respiratory rate Oxygen saturation Oxygen saturation in Arterial blood by Pulse oximetry Systolic And Diastolic Provider Name and Address Organization Details Last Updated DateTime 5 170.18 cm 34.5 kg/m2 08460.3 2 g 84 /min 14 /min 99 % 99 % 108/74 mm[Hg] Abby Erik [facility] [employer] [facility] 5 11:24:41 Date Recorded Body height Body mass index (BMI) Body weight Heart rate Oxygen saturation Oxygen saturation in Arterial blood by Pulse oximetry Body temperature Systolic And Diastolic Provider Name and Address Organization Details Last Updated DateTime 5 170.18 cm 34.5 kg/m2 94149.3 2 g 85 /min 98 % 98 % 98.2 [degF] 121/68 mm[Hg] [employer] Jack Sally [facility] [employer] [facility] 5 12:26:49 Social History None recorded. Functional Status None recorded. Mental Status None recorded. Family History Relationship Description Onset Age of this Age Resolved Age Notes LastModified by Organization Details LastModified Time Maternal Grandfather Heart disease [email or web address] Not available 03/19 12:04:43 Mother Heart disease Diabet ic [email or web address] Not available 03/28/2024 12:05:05 Medical History Condition Response THYROID DISEASE Y Gynecological HistoryNo gynecological history recorded. Obstetrics History GPAL:G 0 P 0 0 0 0 Past Encounters Encounter ID Performer Location Encounter Start Date Encounter Closed Date Diagnosis/Indication Diagnosis SNOMED-CT Code Diagnosis ICD10 Code Diagnosis IMO Codes Diagnosis Note [id number] Alonzo Hua DPM [facility] [place] [address] [place] [address] 03/28/2024 11:44:19 04/15/2024 13:31:05 Pain of left heel 1644169345 128178 M79.672 as below Plantar fa sciitis of left foot 2550534179 8492501 M72.2 no strenuous activities Recommend supportive shoe gear and Powerstep insolesRic e therapyFol low-up in 1 month [id number] Alonzo uHa DPM [facility] [place] [address] [place] [address] 05/09/2024 10:20:14 05/11/2024 09:26:44 Plantar fasciitis of left foot 3435071307 2708060 M72.2 50% improvemen theel injection performed 03-28-24, left heelno strenuous activities Recommend supportive shoe gear and Powerstep insolesRic e therapyFol low-up in 1 month, possible repeat injection next visit Pain of left heel 949742 8522 912235 M79.672 as below [id number] Alonzo Hua DPM [facility] [place] [address] [place] [address] 06/13/2024 11:19:47 06/16/2024 09:10:33 Plantar fasciitis of left foot 5422754688 7210419 M72.2 heel injection performed 03-28-24, left heelno strenuous activities Recommend supportive shoe gear and Powerstep insolesRic e therapy--- repeat injection today Pain of left heel 855187 4059 500254 M79.672 as below [id number] Alonzo Hua DPM [facility] [place] [address] [place] [address] 07/18/2024 11:14:50 07/19/2024 08:01:49 Pain of left heel 5635262395 515157 M79.672 Plantar fa sciitis of left foot 8246560481 8109296 M72.2 heel injection performed 03-28-24, 06-13-24--- left heelno strenuous activities Recommend supportive shoe gear and Powerstep insolesRic e therapyFol low-up 1 month [id number] Alonzo Hua DPM [facility] [place] [address] [place] [address] 09/12/2024 12:13:05 09/13/2024 11:11:54 Plantar fasciitis of left foot 5458170163 5058267 M72.2 heel injection performed 03-28-24, 06-13-24--- left heelReturn ed to normal activities Recommend supportive shoe gear and Powerstep insolesRic e therapyFol low-up as needed Health Concerns Section Related Observation LastModified by Organization Detai ls LastModified Time None Recorded Concern Status LastModified by Organization Details LastModified Time None Recorded Advance Directives Directive None Recorded Payers Insurance Date Sequence Insurance Name Policy Number Policy Malhotra Covered Member ID Malhotra Member ID Guarantor Name 09/12/2024 2 [facility] (MEDICARE REPLACEMENT/AD VANTAGE - HMO) Kaya Quintero-Juani castañeda [id number] Kaya Quintero 09/12/2024 1 [facility] (MEDICAID REPLACEMENT - HMO) Kaya Quintero [id number] Kaya Quintero 09/12/2024 1 [facility] - DOS PRIOR TO 2020 (MEDICAID REPLACEMENT - HMO) Kaya Yancey [id number] Kaya Quintero Notes Date Note Type Note [...] 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 Patient states she has tried different shoe gear but has not had much success with alleviation of pain. Patient denies any open wounds or infection to the area. Patient denies any other complaints. Alonzo Hua DPM [address] [facility] [facility] [address], [place], [address], [facility] [employer] 04/11/2024 09:24:52 05/09/2024 text/html . Patient is a 43-year-old female who returns the office for follow-up on plantar fasciitis of the left foot. Patient is approximately 50% better she states she has not been icing as indicated she states that she did obtain new shoe gear and she is not wearing any orthotics. Patient states that she develops pain after she is standing or walking for long periods of time. Patient states when she has rest she does not have any issues. When she gets up from rest she does not have any problems. Patient denies any issues with infection or injury to the foot. Patient states that she also injured her back which she is currently in physical therapy for.Patient denies any other complaints. Alonzo Hua DPM [address], [place], [address], [employer] 05/09/2024 10:55:40 06/13/2024 text/html . Patient is a 43-year-old female who returns the office for follow-up on left heel pain she states that she was about 50% better but since the last visit she has started to get worse. Patient states she continues to stretch and ice. Patient denies any other complaints. Alonzo Hua DPM [address], [place], [address], [employer] 06/13/2024 12:26:15 07/18/2024 text/html . Patient is a 43-year-old female she returns for follow-up on plantar fasciitis of the left foot she states she is much better she has a pain level of 3/10 she states the injection helped significantly. Patient denies getting any orthotics as recommended. Patient denies any other complaints. Alonzo Hua DPM [address], [place], [address], [employer] 07/18/2024 12:23:46 09/12/2024 text/html . Patient is a 43-year-old female who returns the office for follow-up on left heel plantar fasciitis. Patient states overall she is completely healed she denies any further pain she continues at home stretching, supportive shoe gear, orthotics. Patient denies any other complaints. Alonzo Hua DPM [address], [place], [address], [employer] 09/12/2024 12:38:22 OBGyn Episode No OBEpisode recorded.
--- NOTE | 2024-11-18 06:37 | WPDHPUPDATE1 ---
History and Physical Update Update Date/Time: 11/18/24 06:37 History and Physical has been reviewed, including an updated exam of the patient. There are NO changes in the patient's condition. Risks, benefits, and alternatives have been discussed and questions answered. Patient agrees to proceed with procedure.
[2024-11-18] MEDS: ACETAMINOPHEN 500 MG TABLET 1000 MG PO (09:25)
[2024-11-18] MEDS: LACTATED RINGERS 1,000 ML 30 ML IV CONT (09:30)
[2024-11-18] MEDS: KETOROLAC 15 MG/ML VIAL (*BKC) IV PUSH (09:35)
[2024-11-18] MEDS: SCOPOLAMINE 1 MG PATCH 1 PATCH TRANSDERM (10:06)
--- NOTE | 2024-11-18 10:22 | WPDANESEPPF ---
Anes - Initial Pre Proc Eval Procedure: Operation Date: 11/18/24 11:00 Proposed Procedures p Laparoscopic Left Salpingo Oophorectomy - Joni Miner MD Date/Time: 11/18/24 10:22 Surgeon: Joni Miner MD Pre Op Diagnosis: left ovarian cyst, pelvic pain Patient Data Age: 43 Gender: F Height: 1.7 m Weight: 106.2 kg Last Vital Signs Temp 36.6 C 11/18/24 09:18 Pulse 92 11/18/24 09:18 Resp 18 11/18/24 09:18 BP 109/76 11/18/24 09:18 Pulse Ox 97 11/18/24 09:18 O2 Del Method Room Air 11/18/24 09:18 Allergies Allergy/AdvReac Type Severity Reaction Status Date / Time cat dander Allergy Severe Difficulty Verified 11/09/24 17:57 Breathing dog dander Allergy Severe Difficulty Verified 11/09/24 17:57 Breathing grape Allergy Anaphylaxis Verified 11/09/24 17:57 pomegranate Allergy Anaphylaxis Verified 11/09/24 17:57 green beans Allergy Severe Anaphylactic Uncoded 11/09/24 17:57 Shock Home Medications ?Medication ?Instructions ?Recorded ?Confirmed ?Type mometasone-formoterol HFA 200 2 puff inhalation BID #13 grams 06/30/23 11/18/24 Rx mcg-5 mcg/actuation aerosol inhaler (Dulera) levothyroxine 175 mcg tablet 87.5 mcg PO DAILY 07/22/23 11/18/24 History epinephrine 0.3 mg/0.3 mL 0.3 mg (0.3 mL) IM ONCE PRN 09/11/23 11/09/24 Rx injection, auto-injector (EpiPen) Allergic Reaction #2 ea cyclobenzaprine 10 mg tablet 10 mg PO TID PRN muscle spasm #30 02/25/24 11/09/24 Rx tabs bupropion HCl 300 mg 24 hr tablet, See Rx Instructions .Route 06/23/24 11/18/24 Rx extended release .COMPLEX #90 tabs fluoxetine 40 mg capsule 40 mg PO DAILY #90 caps 07/15/24 11/18/24 Rx albuterol sulfate 90 mcg/actuation See Rx Instructions .Route 11/18/24 11/18/24 History aerosol inhaler .COMPLEX PRN shortness of breath or wheezing hydrocodone 5 mg-acetaminophen 325 1 tablet PO Q4H PRN pain #20 tabs 11/18/24 Rx mg tablet ibuprofen 800 mg tablet (IBU) 800 mg PO TID #20 tabs 11/18/24 Rx Patient hx anesthesia problems: none Family hx anesthesia problems: none Results Review: All pre-operative results and documents have been reviewed as part of the pre-operative evaluation. [facility] Past Medical History Medical History Obesity (BMI 30-39.9) Generalized anxiety disorder Hypothyroid Menorrhagia Irregular bleeding S/p left hip fracture (normal spontaneous vaginal delivery) x 2 Anxiety Asthma Surgical History Surgical History History of endometrial ablation H/O lumpectomy Rt breast lumpectomy S/P tubal ligation Family History Family History Grandparent Breast cancer Acute myocardial infarction Cerebrovascular accident Diabetes mellitus Grandparent Family history of malignant neoplasm of breast Breast cancer Father Asthma Mother Heart disease Stents placed Diabetes mellitus Hypertension Other Depression Social History Social History Smoking status: Never smoker Second hand tobacco smoke exposure: No Alcohol intake: current Drinks per week: 1 Alcohol use details: 1-2 times a month maybe Substance use: never Substance use type: does not use Lack of Transportation: No Lack of Food: Never True Current Housing: I Have Housing Concerned About Future Housing: No Difficulty Paying Gas/Electric Bills: No Difficulty Paying for Meds: No Currently Unemployed: No Education: High School Diploma/GED Difficulty w/ Childcare or Family Care: No Living arrangements: with family Occupation/Education: unemployed Gender identity (if verbalized by the patient): Female Sexual Orientation (if Verbalized by the Patient): Straight or Heterosexual Spiritual care concerns: No Agree to blood products: Yes Anes - Eval Final PreProcedure Day of Procedure 11/18/24 10:22 Patient weight: obese Heart: regular rate and rhythm Lungs: normal air movement Airway: Mallampati scale class II Neurological: alert and oriented Last oral intake: >/= 8 hours ASA classification: II Emergent: no Anesthetic plan: proceed Anesthesia type and monitoring: general ETT and standard monitoring Results Review: All pre-operative results and documents have been reviewed as part of the pre-operative evaluation. Informed Consent: The patient's anesthetic plan and its attendant risks and benefits were discussed with the patient/family/POA. Questions were solicited and answers provided to the satisfaction of the patient/family/POA.
--- NOTE | 2024-11-18 10:58 | S_PTH ---
PATIENT: Kaya Quintero LOC: [facility] U#:[id number] AGE/SX: 43/F ROOM: RE11/18/[address]: Joni Miner MD : 1980 BED: DIS: 11/18/2024 SPEC #: [id number] RECD: 11/18/24 11:45 STATUS: SOUGarry REQ #: [id number] BRIANDA: 11/18/24 10:[address]: Joni Yates DEPT: [facility] Surgical RECD BY: Su Tompkins ENTERED: 11/18/24 11:46 SP TYPE: Surgical OTHR DR: Sharlene Hay APRN Tissues: A - Ovary Procedures: Hematoxylin and Eosin Stain Gross and Microscopic Level 4
--- NOTE | 2024-11-18 11:05 | W.PM.PROC2 ---
Procedure Note - Detailed Date of Procedure 11/18/24 Pre-op Diagnosis left ovarian cyst, pelvic pain Post-op Diagnosis Same Procedure Performed Laparoscopic left oophorectomy Surgeon Joni Miner MD Anesthesia General Indications This is a 43-year-old female status post hysterectomy with pelvic pain in the left ovarian cyst Findings Absent uterus cervix. Left ovarian cyst cyst. Pelvic adhesions Description of Procedure Patient was prepped draped in the normal sterile fashion placed in the dorsal lithotomy position. Under excellent general trach anesthesia a sponge stick was placed in the vagina and the bladder drained of clear urine. The weighted speculum was removed and the gloves were changed. An infraumbilical incision made the Veress the abdomen. Abdomen with CO2 gas to 15mm. The 5mm trocar advanced under direct visualization assuring no injury with the optic scope. Patient placed in Trendelenburg and a suprapubic incision made. The 5mm trocar advanced under direct visualization assuring no injury a left lower quadrant incision made the 10mm trocar advanced under direct visualization assuring no injury the above findings were seen adhesions were seen and these were sharply dissected using LigaSure. The a large left ovarian cyst was noted and the infundibulopelvic structure was skeletonized clamping burning cutting and removing the ovary. This was placed in an Endo-Catch and removed through the left lower quadrant. Irrigation undertaken to clear and no other abnormalities were seen. The lower site removed. The gas removed from the abdomen. The upper site removed the incisions closed with 4-0 Monocryl and glue. Patient went recovery in satisfactory condition. All sponge, needle, instrument counts were correct. There were no immediate complications Estimated Blood Loss 5 Drains No Packing No Pathology Yes Complications No immediate complications Condition Stable Disposition PACU
[2024-11-18] MEDS: fentaNYL CITRATE INJ (*CRX) 100 MCG/2 ML VIAL 25 MCG IV PUSH ×4 (11:30→12:00)
== END 2024-11-18 12:51 | disposition home or self-care (01) ==
PROVIDERS: PCP Nurse Practitioner Family; Visit Provider Obstetrics & Gynecology
PROC: (CPT 49320; principal; 2024-11-18 11:00)
DX: D27.1 Benign neoplasm of left ovary (principal); N73.6 Female pelvic peritoneal adhesions (postinfective); F41.9 Anxiety disorder, unspecified; E03.9 Hypothyroidism, unspecified; J45.909 Unspecified asthma, uncomplicated; E66.9 Obesity, unspecified; Z68.36 Body mass index [BMI] 36.0-36.9, adult; Z79.51 Long term (current) use of inhaled steroids; Z79.891 Long term (current) use of opiate analgesic; Z79.1 Long term (current) use of non-steroidal anti-inflammatories (NSAID); Z98.890 Other specified postprocedural states; Z98.891 History of uterine scar from previous surgery; Z98.51 Tubal ligation status; Z80.3 Family history of malignant neoplasm of breast; Z82.49 Family history of ischemic heart disease and other diseases of the circulatory system
CPT/HCPCS: 58661; 88305; A9270; J1100; J1200; J1885; J2003; J2250; J2405; J2704; J3010; J7120